=== PATIENT | female | born 1985 | race Caucasian/White ===

== ENCOUNTER 2018-05-29 12:33 | Emergency (ER) | payer OTHER, MEDICAID, SELFPAY ==
[2018-05-29 12:45] VITALS: BP 141/95; PULSE 85; RESP 16; TEMP 36.8; O2SAT 99; BMI 30.7
--- NOTE | 2018-05-29 12:50 | DI.RAD.S_ITS ---
PROCEDURE: XR ANKLE LT MIN 3V INDICATIONS: inversion injury to ankle - swelling over lateral maleolus TECHNIQUE: 3 views of the ankle were acquired. COMPARISON: [facility], , ANKLE 3 VIEWS LEFT, 10/23/2012, 2:37. [facility], , ANKLE 3 VIEWS LEFT, 02/28/2009, 22:27. FINDINGS: Bones: No fractures or dislocations. Ankle mortise is normally aligned. No suspicious bony lesions. Soft tissues: No tibiotalar joint effusion. Achilles tendon appears normal. IMPRESSION: No trauma found. Dictated by: James Caldera M.D. on 05/29/2018 at 13:11 Approved by: James Caldera M.D. on 05/29/2018 at 13:11
[2018-05-29 14:45] VITALS: PULSE 70
--- NOTE | 2018-05-29 15:04 | ED.LOWEXIN ---
HPI - Extremity Injury (Lower) <RICHA Bellamy - Last Filed: 05/29/18 22:34> General Chief Complaint: Extremity Injury, Lower Stated Complaint: LEFT ANKLE PAIN Time Seen by Provider: 05/29/18 15:17 History of Present Illness HPI Narrative: 33-year-old female here for complaint of left ankle pain since earlier today. She states she was walking when she rolled her left ankle with pain into the lateral aspect of the ankle with swelling. She reports increased pain with ambulation and weight-bearing make it difficult for her to ambulate. She denies any other injuries or concerns. MD complaint: ankle injury Related Data Previous Rx's Medication Instructions Recorded nystatin 1 pb TOPICAL BID #30 gm 02/26/17 omeprazole 40 mg PO QDAY #90 cap 03/28/17 jktleunxmx-hrrlceyhhvfyp-rfis 0 tab PO Q6HP #30 tab 06/11/17 albuterol sulfate [Ventolin HFA] 2 puff INH Q4HP PRN #1 inh 06/25/17 fluticasone 1 spray INTRANASAL BID #16 gm 11/07/17 beclomethasone dipropionate [Qvar] 1 puff INH BID #1 inh 01/07/18 escitalopram oxalate 5 mg PO QDAY #30 tab 03/01/18 [PRENAVITE] 1 tab PO QDAY #90 tab 04/01/18 lamotrigine 100 mg tablet 100 mg PO QDAY #30 tab 05/23/18 levothyroxine [Synthroid] 125 mcg PO QAM #90 tab 05/27/18 calcitriol 0.25 mcg capsule 0.75 mcg PO ONCE #90 cap 05/31/18 calcitriol 0.5 mcg capsule 0.5 mcg PO BID #60 cap 05/31/18 cetirizine 10 mg PO QDAYP PRN #30 tab 06/03/18 Allergies Allergy/AdvReac Type Severity Reaction Status Date / Time Penicillins [PENICILLINS] Allergy Mild HIVES Verified 05/29/18 12:49 adhesive [ADHESIVE] AdvReac Mild sensitive Verified 05/29/18 12:49 to tape, rash Review of Systems <RICHA Bellamy - Last Filed: 05/29/18 22:34> Constitutional Denies chills, Denies fever(s), Denies lethargy and Denies weakness Eyes Denies change in vision, Denies eye discharge, Denies irritation and Denies loss of vision ENT Ears, Nose, Mouth, and Throat: Denies change in voice, Denies neck pain and Denies sore throat Cardiovascular Denies chest pain, Denies irregular heart rhythm, Denies lightheadedness, Denies palpitations, Denies dyspnea, Denies dyspnea on exertion and Denies orthopnea Respiratory Denies cough, Denies dyspnea, Denies dyspnea on exertion and Denies wheezing Gastrointestinal Gastrointestinal: Denies abdominal pain, Denies change in bowel habits, Denies diarrhea, Denies nausea and Denies vomiting Genitourinary Denies hematuria, Denies flank pain, Denies urinary incontinence and Denies urinary urgency Musculoskeletal Denies neck pain Comments: Swelling and pain into left ankle Integumentary/Breasts Denies pruritus, Denies erythema, Denies rash and Denies wounds Neurologic Denies confusion, Denies loss of vision and Denies weakness Psychiatric Denies anxiety, Denies confusion, Denies depression, Denies homicidal ideation and Denies suicidal ideation Endocrine Denies palpitations Allergic/Immunologic Denies wheezing Exam <RICHA Bellamy - Last Filed: 05/29/18 22:34> Initial Vital Signs Initial Vital Signs: Vital Signs Temperature 98.3 F 05/29/18 12:45 Pulse Rate 85 05/29/18 12:45 Respiratory Rate 16 05/29/18 12:45 Blood Pressure 141/95 H 05/29/18 12:45 Pulse Oximetry 99 05/29/18 12:45 Const General: cooperative and well developed Nutritional Appearance: well nourished Orientation: alert, awake, oriented x3 and not confused [facility] Mouth: oral mucosae normal and moist mucous membranes Eyes Conjunctivae: conjunctivae normal Sclera: sclerae normal Pupils: PERRL EOM: EOM intact bilaterally Resp Effort & Inspection: normal respiratory effort, able to speak in complete sentences, no respiratory distress and no use of accessory muscles Auscultation: clear to auscultation bilaterally, no rales, no rhonchi and no wheezes Cardio Rate: regular rate Rhythm: regular rhythm Heart Sounds: no click, no gallops, no murmurs and no rubs Pulses: normal peripheral pulses Skin General: no rashes or lesions noted, No jaundice and No petechiae Neuro General: alert, oriented x3, gait normal and no focal motor deficits Speech: speech normal Extrem Other: Swelling to the lateral malleolus slight ecchymosis no open lesions. Distal sensation is intact. Distal range of motion is intact. Distal pulses intact <Steff Malone DO - Last Filed: 06/04/18 07:27> Initial Vital Signs Initial Vital Signs: Vital Signs Temperature 98.3 F 05/29/18 12:45 Pulse Rate 85 05/29/18 12:45 Respiratory Rate 16 05/29/18 12:45 Blood Pressure 141/95 H 05/29/18 12:45 Pulse Oximetry 99 05/29/18 12:45 Course <RICHA Bellamy - Last Filed: 05/29/18 22:34> Orders Ordered: ED Orders 05/29/18 12:50 XR ankle LT min 3V Stat Vital Signs - 8 hr 05/29/18 14:45 05/29/18 15:39 Temperature 97.6 F Pulse Rate 64 Pulse Rate [Left Posterior Tibial] 70 Respiratory Rate 16 Blood Pressure [Right Arm] 126/78 H Pulse Oximetry 100 <DO Hawk Castrejon Last Filed: 06/04/18 07:27> Orders Ordered: ED Orders 05/29/18 12:50 XR ankle LT min 3V Stat Vital Signs - 8 hr 05/29/18 14:45 05/29/18 15:39 Temperature 97.6 F Pulse Rate 64 Pulse Rate [Left Posterior Tibial] 70 Respiratory Rate 16 Blood Pressure [Right Arm] 126/78 H Pulse Oximetry 100 MDM - Extremity Injury (Lower) <RICHA Bellamy - Last Filed: 05/29/18 22:34> Imaging Data Left ankle: Radiologist's impression: PROCEDURE: XR ANKLE LT MIN 3V INDICATIONS: inversion injury to ankle - swelling over lateral maleolus TECHNIQUE: 3 views of the ankle were acquired. COMPARISON: [facility], , ANKLE 3 VIEWS LEFT, 10/23/2012, 2:37. [facility], , ANKLE 3 VIEWS LEFT, 02/28/2009, 22:27. FINDINGS: Bones: No fractures or dislocations. Ankle mortise is normally aligned. No suspicious bony lesions. Soft tissues: No tibiotalar joint effusion. Achilles tendon appears normal. IMPRESSION: No trauma found. Dictated by: James Caldera M.D. on 05/29/2018 at 13:11 Approved by: James Caldera M.D. on 05/29/2018 at 13:11 [facility] Narrative Medical decision making narrative: X-ray of the left ankle was obtained was negative for any acute fractures. She is placed in a gel splint for comfort and support. She has crutches at home and will use them for ambulation for nonweightbearing. Follow up with primary care provider next week for re-evaluation. [id number] Tylenol and/or Motrin as needed for discomfort. Ice and elevation help with swelling. For any worsening symptoms return emergency room. Discharge Plan Departure Patient Disposition: Home, Self-Care Clinical Impression: Left ankle sprain Discharge Date/Time: 05/29/18 16:03 Interventions: ED Discharge Assessment Last Done: 05/29/18 16:03 Instructions: DI for Ankle Sprain Activity Restrictions/Additional Instructions: X-ray of the left ankle was obtained was negative for any acute fractures. Signs and symptoms presents as a left ankle sprain. You have been placed in a splint for comfort and support use as directed. Use crutches for nonweightbearing until able to bear weight without discomfort. Follow up with her primary care provider next week for re-evaluation. Use veyv-use-eamxwbn Tylenol and/or Motrin as needed for any discomfort. Ice and elevation to help with swelling. For any worsening symptoms return to the emergency room. Prescriptions: No Action nystatin 30 GM cream 1 pb Topical BID Qty: 30 RF: 1 omeprazole 40 MG capsule,delayed release(DR/EC) 40 mg PO QDAY Qty: 90 RF: 3 mefbzejtlw-ybudalxnwsjan-nalt 1 EACH tablet PO Q6HP Qty: 30 RF: 3 albuterol sulfate [Ventolin HFA] 90 MCG/PUFF HFA aerosol inhaler 2 puff INH Q4HP PRNQty: 1 RF: 5 fluticasone 16 GM spray,suspension 1 spray Intranasal BID Qty: 16 RF: 5 beclomethasone dipropionate [Qvar] 80 MCG/PUFF aerosol 1 puff INH BID Qty: 1 RF: 0 escitalopram oxalate 5 MG tablet 5 mg PO QDAY Qty: 30 RF: 1 [PRENAVITE] 1 tab PO QDAY Qty: 90 RF: 0 lamotrigine [Lamictal] 100 mg tablet 100 mg PO QDAY Qty: 30 RF: 0 levothyroxine [Synthroid] 125 mcg tablet 125 mcg PO QAM Qty: 90 RF: 1 calcitriol 0.5 mcg capsule 0.5 mcg PO BID Qty: 60 RF: 5 calcitriol 0.25 mcg capsule 0.75 mcg PO ONCE Qty: 90 RF: 5 cetirizine 10 mg tablet 10 mg PO QDAYP PRNQty: 30 RF: 3 Referrals: Anum Melo DO [Primary Care Provider] - <Steff Malone DO - Last Filed: 06/04/18 07:27> Cosign ED Attending Cosignature Attestation: I was immediately available in the department for consultation. Documentation has been reviewed. I agree with assessment and plan.
--- NOTE | 2018-05-29 15:12 | ED_ITS ---
HPI - Extremity Injury (Lower) <RICHA Bellamy - Last Filed: 05/29/18 22:34> General Chief Complaint: Extremity Injury, Lower Stated Complaint: LEFT ANKLE PAIN Time Seen by Provider: 05/29/18 15:17 History of Present Illness HPI Narrative: 33-year-old female here for complaint of left ankle pain since earlier today. She states she was walking when she rolled her left ankle with pain into the lateral aspect of the ankle with swelling. She reports increased pain with ambulation and weight-bearing make it difficult for her to ambulate. She denies any other injuries or concerns. MD complaint: ankle injury Related Data Previous Rx's Medication Instructions Recorded nystatin 1 pb TOPICAL BID #30 gm 02/26/17 omeprazole 40 mg PO QDAY #90 cap 03/28/17 exysguekzq-dmqddmlbsjorb-dass 0 tab PO Q6HP #30 tab 06/11/17 albuterol sulfate [Ventolin HFA] 2 puff INH Q4HP PRN #1 inh 06/25/17 fluticasone 1 spray INTRANASAL BID #16 gm 11/07/17 beclomethasone dipropionate [Qvar] 1 puff INH BID #1 inh 01/07/18 escitalopram oxalate 5 mg PO QDAY #30 tab 03/01/18 [PRENAVITE] 1 tab PO QDAY #90 tab 04/01/18 lamotrigine 100 mg tablet 100 mg PO QDAY #30 tab 05/23/18 levothyroxine [Synthroid] 125 mcg PO QAM #90 tab 05/27/18 calcitriol 0.25 mcg capsule 0.75 mcg PO ONCE #90 cap 05/31/18 calcitriol 0.5 mcg capsule 0.5 mcg PO BID #60 cap 05/31/18 cetirizine 10 mg PO QDAYP PRN #30 tab 06/03/18 Allergies Allergy/AdvReac Type Severity Reaction Status Date / Time Penicillins [PENICILLINS] Allergy Mild HIVES Verified 05/29/18 12:49 adhesive [ADHESIVE] AdvReac Mild sensitive Verified 05/29/18 12:49 to tape, rash Review of Systems <RICHA Bellamy - Last Filed: 05/29/18 22:34> Constitutional Denies chills, Denies fever(s), Denies lethargy and Denies weakness Eyes Denies change in vision, Denies eye discharge, Denies irritation and Denies loss of vision ENT Ears, Nose, Mouth, and Throat: Denies change in voice, Denies neck pain and Denies sore throat Cardiovascular Denies chest pain, Denies irregular heart rhythm, Denies lightheadedness, Denies palpitations, Denies dyspnea, Denies dyspnea on exertion and Denies orthopnea Respiratory Denies cough, Denies dyspnea, Denies dyspnea on exertion and Denies wheezing Gastrointestinal Gastrointestinal: Denies abdominal pain, Denies change in bowel habits, Denies diarrhea, Denies nausea and Denies vomiting Genitourinary Denies hematuria, Denies flank pain, Denies urinary incontinence and Denies urinary urgency Musculoskeletal Denies neck pain Comments: Swelling and pain into left ankle Integumentary/Breasts Denies pruritus, Denies erythema, Denies rash and Denies wounds Neurologic Denies confusion, Denies loss of vision and Denies weakness Psychiatric Denies anxiety, Denies confusion, Denies depression, Denies homicidal ideation and Denies suicidal ideation Endocrine Denies palpitations Allergic/Immunologic Denies wheezing Exam <RICHA Bellamy - Last Filed: 05/29/18 22:34> Initial Vital Signs Initial Vital Signs: Vital Signs Temperature 98.3 F 05/29/18 12:45 Pulse Rate 85 05/29/18 12:45 Respiratory Rate 16 05/29/18 12:45 Blood Pressure 141/95 H 05/29/18 12:45 Pulse Oximetry 99 05/29/18 12:45 Const General: cooperative and well developed Nutritional Appearance: well nourished Orientation: alert, awake, oriented x3 and not confused [facility] Mouth: oral mucosae normal and moist mucous membranes Eyes Conjunctivae: conjunctivae normal Sclera: sclerae normal Pupils: PERRL EOM: EOM intact bilaterally Resp Effort & Inspection: normal respiratory effort, able to speak in complete sentences, no respiratory distress and no use of accessory muscles Auscultation: clear to auscultation bilaterally, no rales, no rhonchi and no wheezes Cardio Rate: regular rate Rhythm: regular rhythm Heart Sounds: no click, no gallops, no murmurs and no rubs Pulses: normal peripheral pulses Skin General: no rashes or lesions noted, No jaundice and No petechiae Neuro General: alert, oriented x3, gait normal and no focal motor deficits Speech: speech normal Extrem Other: Swelling to the lateral malleolus slight ecchymosis no open lesions. Distal sensation is intact. Distal range of motion is intact. Distal pulses intact <Steff Malone DO - Last Filed: 06/04/18 07:27> Initial Vital Signs Initial Vital Signs: Vital Signs Temperature 98.3 F 05/29/18 12:45 Pulse Rate 85 05/29/18 12:45 Respiratory Rate 16 05/29/18 12:45 Blood Pressure 141/95 H 05/29/18 12:45 Pulse Oximetry 99 05/29/18 12:45 Course <RICHA Bellamy - Last Filed: 05/29/18 22:34> Orders Ordered: ED Orders 05/29/18 12:50 XR ankle LT min 3V Stat Vital Signs - 8 hr 05/29/18 14:45 05/29/18 15:39 Temperature 97.6 F Pulse Rate 64 Pulse Rate [Left Posterior Tibial] 70 Respiratory Rate 16 Blood Pressure [Right Arm] 126/78 H Pulse Oximetry 100 <DO Hawk Castrejon Last Filed: 06/04/18 07:27> Orders Ordered: ED Orders 05/29/18 12:50 XR ankle LT min 3V Stat Vital Signs - 8 hr 05/29/18 14:45 05/29/18 15:39 Temperature 97.6 F Pulse Rate 64 Pulse Rate [Left Posterior Tibial] 70 Respiratory Rate 16 Blood Pressure [Right Arm] 126/78 H Pulse Oximetry 100 MDM - Extremity Injury (Lower) <RICHA Bellamy - Last Filed: 05/29/18 22:34> Imaging Data Left ankle: Radiologist's impression: PROCEDURE: XR ANKLE LT MIN 3V INDICATIONS: inversion injury to ankle - swelling over lateral maleolus TECHNIQUE: 3 views of the ankle were acquired. COMPARISON: , , ANKLE 3 VIEWS LEFT, 10/23/2012, 2:37. , , ANKLE 3 VIEWS LEFT, 02/28/2009, 22:27. FINDINGS: Bones: No fractures or dislocations. Ankle mortise is normally aligned. No suspicious bony lesions. Soft tissues: No tibiotalar joint effusion. Achilles tendon appears normal. IMPRESSION: No trauma found. Dictated by: James Caldera M.D. on 05/29/2018 at 13:11 Approved by: James Caldera M.D. on 05/29/2018 at 13:11 [facility] Narrative Medical decision making narrative: X-ray of the left ankle was obtained was negative for any acute fractures. She is placed in a gel splint for comfort and support. She has crutches at home and will use them for ambulation for nonweightbearing. Follow up with primary care provider next week for re- evaluation. [id number]-fxb-aurwrrq Tylenol and/or Motrin as needed for discomfort. Ice and elevation help with swelling. For any worsening symptoms return emergency room. Discharge Plan Departure Patient Disposition: Home, Self-Care Clinical Impression: Left ankle sprain Discharge Date/Time: 05/29/18 16:03 Interventions: ED Discharge Assessment Last Done: 05/29/18 16:03 Instructions: DI for Ankle Sprain Activity Restrictions/Additional Instructions: X-ray of the left ankle was obtained was negative for any acute fractures. Signs and symptoms presents as a left ankle sprain. You have been placed in a splint for comfort and support use as directed. Use crutches for nonweightbearing until able to bear weight without discomfort. Follow up with her primary care provider next week for re-evaluation. Use fuup-eaf-opbiijl Tylenol and/or Motrin as needed for any discomfort. Ice and elevation to help with swelling. For any worsening symptoms return to the emergency room. Prescriptions: No Action nystatin 30 GM cream 1 pb Topical BID Qty: 30 RF: 1 omeprazole 40 MG capsule,delayed release(DR/EC) 40 mg PO QDAY Qty: 90 RF: 3 krfeehjqis-gzinmvvygxdkh-ooik 1 EACH tablet PO Q6HP Qty: 30 RF: 3 albuterol sulfate [Ventolin HFA] 90 MCG/PUFF HFA aerosol inhaler 2 puff INH Q4HP PRNQty: 1 RF: 5 fluticasone 16 GM spray,suspension 1 spray Intranasal BID Qty: 16 RF: 5 beclomethasone dipropionate [Qvar] 80 MCG/PUFF aerosol 1 puff INH BID Qty: 1 RF: 0 escitalopram oxalate 5 MG tablet 5 mg PO QDAY Qty: 30 RF: 1 [PRENAVITE] 1 tab PO QDAY Qty: 90 RF: 0 lamotrigine [Lamictal] 100 mg tablet 100 mg PO QDAY Qty: 30 RF: 0 levothyroxine [Synthroid] 125 mcg tablet 125 mcg PO QAM Qty: 90 RF: 1 calcitriol 0.5 mcg capsule 0.5 mcg PO BID Qty: 60 RF: 5 calcitriol 0.25 mcg capsule 0.75 mcg PO ONCE Qty: 90 RF: 5 cetirizine 10 mg tablet 10 mg PO QDAYP PRNQty: 30 RF: 3 Referrals: Anum Melo DO [Primary Care Provider] - <Steff Malone DO - Last Filed: 06/04/18 07:27> Cosign ED Attending Cosignature Attestation: I was immediately available in the department for consultation. Documentation has been reviewed. I agree with assessment and plan.
[2018-05-29 15:39] VITALS: BP 126/78; PULSE 64; RESP 16; TEMP 36.4; O2SAT 100
== END 2018-05-29 16:03 | disposition home or self-care (01) ==
PROVIDERS: Emergency Provider Nurse Practitioner Family; Family Provider Family Medicine; PCP Family Medicine
DX: S93.402A Sprain of unspecified ligament of left ankle, initial encounter (principal); W18.40XA Slipping, tripping and stumbling without falling, unspecified, initial encounter
CPT/HCPCS: 29540; 73610; 99282; 99283

== ENCOUNTER → 2018-06-25 07:45 | Outpatient (CLI) | payer OTHER, MEDICAID, SELFPAY ==
[2018-06-25 08:58] LABS: TSH w/ Reflex to FT4 2.42 uIU/mL (0.47-4.68)
[2018-06-27 12:15] LABS: Ionized Calcium 4.9 mg/dL (4.8-5.6)
== END ==
PROVIDERS: PCP Family Medicine; Visit Provider Family Medicine
DX: E03.9 Hypothyroidism, unspecified (principal); E05.00 Thyrotoxicosis with diffuse goiter without thyrotoxic crisis or storm; E83.51 Hypocalcemia
CPT/HCPCS: 36415; 82330; 84443

== ENCOUNTER 2018-07-18 13:45 | Outpatient (RCR) | payer OTHER, MEDICAID, SELFPAY ==
--- NOTE | 2018-06-17 18:09 | PT.OIE ---
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) Graves' disease (Resolved) 7 (Resolved) Hyperthyroidism (Resolved) Past Surgical History (Last Reviewed 06/14/18 @ 08:48 by Nereyda Marie LPN) History of thyroidectomy (Resolved 10/2013) Status post delivery (Resolved 01/31/17) Provider Visit Care Team Role Provider Type Anum Melo DO Family Provider Physician Primary Care Provider Specialty: Family Practice Address: [address] [place] [address], [id number] Email: [email or web address] Ashok Barnes MD Attending Provider Physician Specialty: Internal Medicine Address: [address] [place] [address], [id number] Email: Physical Therapy Initial Evaluation PT-OP-A Visit Information Start: 06/18/18 17:40 Freq: Status: Active Protocol: Document 06/17/18 13:45 DCW (Rec: 06/18/18 18:09 [facility] [id number]) Out-Patient Physical Therapy Visit Information Visit Information Visit Type Initial Evaluation Visit Start Time 13:45 Visit Stop Time 14:30 Total Visit Minutes 45 Visit Number 1 Number of DRAWING MACHINE OPERATOR Visits 0 Evaluation Information Evaluation Date 06/17/18 PT-OP-B Current Condition Start: 06/18/18 17:40 Freq: Status: Active Protocol: Document 06/17/18 13:45 DCW (Rec: 06/18/18 18:09 DC [id number]) Current Condition History of Current Condition Onset Date s/p three weeks ankle sprain Current Complaints Left ankle pain, ankle instability, repeated chronic ankle sprain History of Current Condition Pt is a 33 year old female presenting three weeks s/p most recent left ankle sprain. Pt reports she has sprained her left ankle a few dozen times over the last 21 years, including 4 times within the past few months. Pt reports she was just walking when it gave out. Pt notes she is currently able to walk, but is scared to run after her kids. Pt reports there was bruising along the entire dorsal surface of her foot, as well as the entire was back around her heel. Pt recently went to the zoo with her kids, and while she felt okay while walking around there, she was very sore the following day and could not perform her normal household tasks. Prior Treatments and Tests x-ray - negative Future Testing and Treatments Planned Possible MRI Treatment Goals Patient/Caregiver Goals Pt would like to return to running around with her kids without worrying aboud spraining her ankle Prior Functional Status Baseline Function- ADL's Independent Baseline Function- Mobility Independent Current Functional Impairments (Reported) Functional Limitations- Recreation/ Unable to run or jump with Hobbies kids PT-OP-C Subjective Start: 06/18/18 17:40 Freq: Status: Active Protocol: Document 06/17/18 13:45 DCW (Rec: 06/18/18 18:09 DCW [id number]) Patient Questionnaires Lower Extremity Functional Scale LEFS Score 67/80 = 83.75% LEFS Impairment 1 to 19% Impaired (Score 63-79 ) OP-PT Pain Assessment Pain Assessment Grid Paper Pain Assessment Grid Completed Yes Location Left Lateral Ankle Intensity 4 Scale Used Numeric (1 - 10) Pain Aggravating Factors Exercise PT-OP-F Manual Assessment Start: 06/18/18 17:40 Freq: Status: Active Protocol: Document 06/17/18 13:45 DCW (Rec: 06/18/18 18:09 DCW [id number]) Manual Assessments Soft Tissue Assessment Soft Tissue Mobility Assessment Edema surrounding lateral malleolus, tenderness to palpation along peroneal tendon, pain at posterior talofibular ligament. No pain at anterior talofibular ligament Joint Mobility Assessment Joint Mobility Assessment Posterior->Anterior hypermobility at lateral talofibular joint PT-OP-K Range of Motion Start: 06/18/18 17:40 Freq: Status: Active Protocol: Document 06/17/18 13:45 DCW (Rec: 06/18/18 18:09 DCW [id number]) Ankle and Foot Goniometric Range of Motion Ankle and Foot Measured in Degrees Left Active Ankle/Foot ROM WFL Yes Testing Position Sitting PT-OP-L Special Tests Start: 06/18/18 17:40 Freq: Status: Active Protocol: Document 06/17/18 13:45 DCW (Rec: 06/18/18 18:09 DCW [id number]) Special Tests Foot/Ankle Special Tests Talor Tilt Test Results 2 Comments Possible ligamental damage Anterior Draw Test Results Positive PT-OP-M Strength Start: 06/18/18 17:40 Freq: Status: Active Protocol: Document 06/17/18 13:45 DCW (Rec: 06/18/18 18:09 DCW [id number]) Ankle/Foot Strength Ankle and Foot Manual Muscle Testing Left Dorsiflexion (L4) 5 Normal Plantarflexion (S1) 4 Good Inversion 5 Normal Eversion (S1) 4- Good- PT-OP-Q Treatments Start: 06/18/18 17:40 Freq: Status: Active Protocol: Document 06/17/18 13:45 DCW (Rec: 06/18/18 18:09 DCW [id number]) Therapeutic Exercises Sitting Exercises 3 Sitting Exercise Name Ankle ABC's Side left 2 Sitting Exercise Name Ankle Plantarflexion Side left Resistance Lv 1 Equipment Used T-band 1 Sitting Exercise Name Ankle Eversion Side left Resistance Lv 1 Equipment Used T-band PT-OP-T Assessment and Plan Start: 06/18/18 17:40 Freq: Status: Active Protocol: Document 06/17/18 13:45 DCW (Rec: 06/18/18 18:09 DCW [id number]) Physical Therapy Assessment Rehab Potential Rehabilitation Potential Good Evaluation Complexity Number of Personal Factors/Comorbidities 1-2 Number of Body Systems Impaired 3 Clinical Presentation at Evaluation Unstable Impairments Impairments Activity Tolerance Edema Functional Activities Gait Pain Soft Tissue Mobility Strength Goals Three Impairment Strength Short Term Goal (STG) Ankle strength to 5/5 Two Impairment Activity Limitation Short Term Goal (STG) Pt to run with her children outside with no ankle pain STG Duration 07/08/18 One Impairment Joint Instability Short Term Goal (STG) Anterior Drawer test to negative STG Duration 07/08/18 Assessment Summary Assessment Pt presents with signs and symptoms of a possible ATF ligament tear.With pt's repeated sprains, along with her positive anterior drawer and talar tilt tests, ligament tear is likely. Additionally, pt has no current pain with palpation at the ATF, which likely indicates that if she does have a tear, it occurred a number of years ago, which has resulted in her repeated ankle sprains. Pt may benefit from strengthening to improve stability at the joint. If pt does not improve with conservative treatment, however, she may benefit from an MRI to determine extent of damage, and potentially a referral to an orthopedic surgeon. Physical Therapy Plan Frequency and Duration Frequency of Treatment 2x/Week Duration of Treatment 8 weeks Plan of Care Start Date 06/17/18 Plan of Care End Date 08/12/18 Therapeutic Interventions Therapeutic Interventions Aquatic Therapy Balance Training Gait Training Home Exercise Program Manual Therapy Self-Care/Home Management Soft Tissue Mobilization Taping Therapeutic Exercises Modalities Cold Pack/Ice Massage Electric Stimulation Hot Packs Ultrasound Next Visit Focus/Plan Next Note Type Treatment Note Next Visit Plan Ice massage, ankle strengthening, joint stability , trial taping
--- NOTE | 2018-06-17 18:10 | PT.OPPOC ---
Current Diagnoses Pain in left ankle and joints of left foot (06/17/18) Sprain of unspecified ligament of left ankle, subsequent encounter (06/17/18) Sprain of other ligament of left ankle, subsequent encounter (06/17/18) Provider Visit Care Team Role Provider Type Anum Melo DO Family Provider Physician Primary Care Provider Specialty: Family Practice Address: [address] [place] [address], [address] Email: [email or web address] Ashok Barnes MD Attending Provider Physician Specialty: Internal Medicine Address: [address] [place] [address], [id number] Email: Plan Of Care PT-OP-T Assessment and Plan Start: 06/18/18 17:40 Freq: Status: Active Protocol: Document 06/17/18 13:45 DCW (Rec: 06/18/18 18:09 DCW [id number]) Physical Therapy Assessment Rehab Potential Rehabilitation Potential Good Evaluation Complexity Number of Personal Factors/Comorbidities 1-2 Number of Body Systems Impaired 3 Clinical Presentation at Evaluation Unstable Impairments Impairments Activity Tolerance Edema Functional Activities Gait Pain Soft Tissue Mobility Strength Goals Three Impairment Strength Short Term Goal (STG) Ankle strength to 5/5 Two Impairment Activity Limitation Short Term Goal (STG) Pt to run with her children outside with no ankle pain STG Duration 07/08/18 One Impairment Joint Instability Short Term Goal (STG) Anterior Drawer test to negative STG Duration 07/08/18 Assessment Summary Assessment Pt presents with signs and symptoms of a possible ATF ligament tear.With pt's repeated sprains, along with her positive anterior drawer and talar tilt tests, ligament tear is likely. Additionally, pt has no current pain with palpation at the ATF, which likely indicates that if she does have a tear, it occurred a number of years ago, which has resulted in her repeated ankle sprains. Pt may benefit from strengthening to improve stability at the joint. If pt does not improve with conservative treatment, however, she may benefit from an MRI to determine extent of damage, and potentially a referral to an orthopedic surgeon. Physical Therapy Plan Frequency and Duration Frequency of Treatment 2x/Week Duration of Treatment 8 weeks Plan of Care Start Date 06/17/18 Plan of Care End Date 08/12/18 Therapeutic Interventions Therapeutic Interventions Aquatic Therapy Balance Training Gait Training Home Exercise Program Manual Therapy Self-Care/Home Management Soft Tissue Mobilization Taping Therapeutic Exercises Modalities Cold Pack/Ice Massage Electric Stimulation Hot Packs Ultrasound Next Visit Focus/Plan Next Note Type Treatment Note Next Visit Plan Ice massage, ankle strengthening, joint stability , trial taping Plan of Care Dates Plan of Care Start Date 06/17/18 Plan of Care End Date 08/12/18 Please Sign and Return: I have reviewed this Plan of Care and certify that the skilled therapy services above are required to meet the patient?s needs. Physician Signature Date Printed Name and Credentials Clinical Instructor Signature Printed Name and Credentials
--- NOTE | 2018-06-26 16:41 | PT.OTN ---
Current Diagnoses Sprain of unspecified ligament of left ankle, initial encounter (06/26/18) Sprain of unspecified ligament of left ankle, subsequent encounter (06/26/18) Physical Therapy Treatment Note PT-OP-A Visit Information Start: 06/18/18 17:40 Freq: Status: Active Protocol: Document 06/26/18 16:00 DCW (Rec: 06/26/18 16:41 DCW [id number]) Out-Patient Physical Therapy Visit Information Visit Information Visit Type Treatment Note Visit Start Time 16:00 Visit Stop Time 16:45 Total Visit Minutes 45 Visit Number 2 Number of YARDER OPERATOR Visits 0 Evaluation Information Evaluation Date 06/17/18 PT-OP-B Current Condition Start: 06/18/18 17:40 Freq: Status: Active Protocol: Document 06/17/18 13:45 DCW (Rec: 06/18/18 18:09 DCW [id number]) Current Condition History of Current Condition Onset Date s/p three weeks ankle sprain Current Complaints Left ankle pain, ankle instability, repeated chronic ankle sprain History of Current Condition Pt is a 33 year old female presenting three weeks s/p most recent left ankle sprain. Pt reports she has sprained her left ankle a few dozen times over the last 21 years, including 4 times within the past few months. Pt reports she was just walking when it gave out. Pt notes she is currently able to walk, but is scared to run after her kids. Pt reports there was bruising along the entire dorsal surface of her foot, as well as the entire was back around her heel. Pt recently went to the zoo with her kids, and while she felt okay while walking around there, she was very sore the following day and could not perform her normal household tasks. Prior Treatments and Tests x-ray - negative Future Testing and Treatments Planned Possible MRI Treatment Goals Patient/Caregiver Goals Pt would like to return to running around with her kids without worrying aboud spraining her ankle Prior Functional Status Baseline Function- ADL's Independent Baseline Function- Mobility Independent Current Functional Impairments (Reported) Functional Limitations- Recreation/ Unable to run or jump with Hobbies kids PT-OP-C Subjective Start: 06/18/18 17:40 Freq: Status: Active Protocol: Document 06/26/18 16:00 DCW (Rec: 06/26/18 16:41 DCW [id number]) OP-PT Subjective Patient Comments Patient Comments Pt reports she has not rolled her ankle at all since her last visit, but her tendon does hurt a little bit. PT-OP-F Manual Assessment Start: 06/18/18 17:40 Freq: Status: Active Protocol: Document 06/17/18 13:45 DCW (Rec: 06/18/18 18:09 DCW [id number]) Manual Assessments Soft Tissue Assessment Soft Tissue Mobility Assessment Edema surrounding lateral malleolus, tenderness to palpation along peroneal tendon, pain at posterior talofibular ligament. No pain at anterior talofibular ligament Joint Mobility Assessment Joint Mobility Assessment Posterior->Anterior hypermobility at lateral talofibular joint PT-OP-K Range of Motion Start: 06/18/18 17:40 Freq: Status: Active Protocol: Document 06/17/18 13:45 DCW (Rec: 06/18/18 18:09 DCW [id number]) Ankle and Foot Goniometric Range of Motion Ankle and Foot Measured in Degrees Left Active Ankle/Foot ROM WFL Yes Testing Position Sitting PT-OP-L Special Tests Start: 06/18/18 17:40 Freq: Status: Active Protocol: Document 06/17/18 13:45 DCW (Rec: 06/18/18 18:09 DCW [id number]) Special Tests Foot/Ankle Special Tests Talor Tilt Test Results 2 Comments Possible ligamental damage Anterior Draw Test Results Positive PT-OP-M Strength Start: 06/18/18 17:40 Freq: Status: Active Protocol: Document 06/17/18 13:45 DCW (Rec: 06/18/18 18:09 DCW [id number]) Ankle/Foot Strength Ankle and Foot Manual Muscle Testing Left Dorsiflexion (L4) 5 Normal Plantarflexion (S1) 4 Good Inversion 5 Normal Eversion (S1) 4- Good- PT-OP-Q Treatments Start: 06/18/18 17:40 Freq: Status: Active Protocol: Document 06/26/18 16:00 DCW (Rec: 06/26/18 16:41 DCW [id number]) Gym Equipment Shuttle Recovery Unilateral Heel Raises Resistance 50# Bilateral Heel Raises Resistance 75# Shuttle Balance 1 Details Red - Lateral Weight Shift Therapeutic Exercises Standing Exercises 1 Standing Exercise Name BAPS - DF/PF, Inv/Ev, CW/CCW Side left Manual Therapy Treatment Taping 1 Body Location Fan across left lateral ankle Treatment Focus Stability, edema management Type of Tape Kinesio Tape Neuro Re-Education Treatment Balance Activities 1 Details SLS on BOSU Surface Blue BOSU PT-OP-R Modalities Start: 06/18/18 17:40 Freq: Status: Active Protocol: Document 06/26/18 16:00 DCW (Rec: 06/26/18 16:41 DCW [id number]) Ultrasound Therapy Treatment Left Lateral Ankle Treatment Duration (minutes) 8 Patient Position Hooklying Coupling Medium Ultrasound Gel Frequency Setting (mHz) 3 Mode Setting Pulsed Duty Cycle 50 Intensity Setting (w/cm2) 1.2 PT-OP-T Assessment and Plan Start: 06/18/18 17:40 Freq: Status: Active Protocol: Document 06/26/18 16:00 DCW (Rec: 06/26/18 16:41 DCW [id number]) Physical Therapy Assessment Impairments Impairments Activity Tolerance Edema Functional Activities Gait Pain Soft Tissue Mobility Strength Goals Three Impairment Strength Short Term Goal (STG) Ankle strength to 5/5 Two Impairment Activity Limitation Short Term Goal (STG) Pt to run with her children outside with no ankle pain STG Duration 07/08/18 One Impairment Joint Instability Short Term Goal (STG) Anterior Drawer test to negative STG Duration 07/08/18 Assessment Summary Assessment Pt tolerated today's TherEx with mild apprehension, but able to perform all activities pain-free Physical Therapy Plan Frequency and Duration Frequency of Treatment 2x/Week Duration of Treatment 8 weeks Plan of Care Start Date 06/17/18 Plan of Care End Date 08/12/18 Therapeutic Interventions Therapeutic Interventions Aquatic Therapy Balance Training Gait Training Home Exercise Program Manual Therapy Self-Care/Home Management Soft Tissue Mobilization Taping Therapeutic Exercises Modalities Cold Pack/Ice Massage Electric Stimulation Hot Packs Ultrasound Next Visit Focus/Plan Next Note Type Treatment Note Next Visit Plan Ice massage, ankle strengthening, joint stability , trial taping
--- NOTE | 2018-07-02 16:44 | PT.OTN ---
Current Diagnoses Sprain of unspecified ligament of left ankle, initial encounter (07/02/18) Sprain of unspecified ligament of left ankle, subsequent encounter (07/02/18) Physical Therapy Treatment Note PT-OP-A Visit Information Start: 06/18/18 17:40 Freq: Status: Active Protocol: Document 07/02/18 16:00 DCW (Rec: 07/02/18 16:44 DCW [id number]) Out-Patient Physical Therapy Visit Information Visit Information Visit Type Treatment Note Visit Start Time 16:00 Visit Stop Time 16:45 Total Visit Minutes 45 Visit Number 3 Number of COTTON ACREAGE MEASURER Visits 0 Evaluation Information Evaluation Date 06/17/18 PT-OP-B Current Condition Start: 06/18/18 17:40 Freq: Status: Active Protocol: Document 06/17/18 13:45 DCW (Rec: 06/18/18 18:09 DCW [id number]) Current Condition History of Current Condition Onset Date s/p three weeks ankle sprain Current Complaints Left ankle pain, ankle instability, repeated chronic ankle sprain History of Current Condition Pt is a 33 year old female presenting three weeks s/p most recent left ankle sprain. Pt reports she has sprained her left ankle a few dozen times over the last 21 years, including 4 times within the past few months. Pt reports she was just walking when it gave out. Pt notes she is currently able to walk, but is scared to run after her kids. Pt reports there was bruising along the entire dorsal surface of her foot, as well as the entire was back around her heel. Pt recently went to the zoo with her kids, and while she felt okay while walking around there, she was very sore the following day and could not perform her normal household tasks. Prior Treatments and Tests x-ray - negative Future Testing and Treatments Planned Possible MRI Treatment Goals Patient/Caregiver Goals Pt would like to return to running around with her kids without worrying aboud spraining her ankle Prior Functional Status Baseline Function- ADL's Independent Baseline Function- Mobility Independent Current Functional Impairments (Reported) Functional Limitations- Recreation/ Unable to run or jump with Hobbies kids PT-OP-C Subjective Start: 06/18/18 17:40 Freq: Status: Active Protocol: Document 07/02/18 16:00 DCW (Rec: 07/02/18 16:44 DCW [id number]) OP-PT Subjective Patient Comments Patient Comments Pt reports she did not roll her ankle, but did step down wrong and just turned it out a little. PT-OP-F Manual Assessment Start: 06/18/18 17:40 Freq: Status: Active Protocol: Document 06/17/18 13:45 DCW (Rec: 06/18/18 18:09 DCW [id number]) Manual Assessments Soft Tissue Assessment Soft Tissue Mobility Assessment Edema surrounding lateral malleolus, tenderness to palpation along peroneal tendon, pain at posterior talofibular ligament. No pain at anterior talofibular ligament Joint Mobility Assessment Joint Mobility Assessment Posterior->Anterior hypermobility at lateral talofibular joint PT-OP-K Range of Motion Start: 06/18/18 17:40 Freq: Status: Active Protocol: Document 06/17/18 13:45 DCW (Rec: 06/18/18 18:09 DCW [id number]) Ankle and Foot Goniometric Range of Motion Ankle and Foot Measured in Degrees Left Active Ankle/Foot ROM WFL Yes Testing Position Sitting PT-OP-L Special Tests Start: 06/18/18 17:40 Freq: Status: Active Protocol: Document 06/17/18 13:45 DCW (Rec: 06/18/18 18:09 DCW [id number]) Special Tests Foot/Ankle Special Tests Talor Tilt Test Results 2 Comments Possible ligamental damage Anterior Draw Test Results Positive PT-OP-M Strength Start: 06/18/18 17:40 Freq: Status: Active Protocol: Document 06/17/18 13:45 DCW (Rec: 06/18/18 18:09 DCW [id number]) Ankle/Foot Strength Ankle and Foot Manual Muscle Testing Left Dorsiflexion (L4) 5 Normal Plantarflexion (S1) 4 Good Inversion 5 Normal Eversion (S1) 4- Good- PT-OP-Q Treatments Start: 06/18/18 17:40 Freq: Status: Active Protocol: Document 07/02/18 16:00 DCW (Rec: 07/02/18 16:44 DCW [id number]) Gym Equipment Shuttle Recovery Unilateral Heel Raises Resistance 50# Bilateral Heel Raises Resistance 100# Shuttle Balance 1 Details Red - Lateral Weight Shift Manual Therapy Treatment Soft Tissue Mobilization 1 Body Location Peroneal Tendon Mobilization Type Cross-Friction Intensity/Depth Superficial Body Position Sitting Taping 1 Body Location Fan across left lateral ankle Treatment Focus Stability, edema management Type of Tape Kinesio Tape PT-OP-R Modalities Start: 06/18/18 17:40 Freq: Status: Active Protocol: Document 07/02/18 16:00 DCW (Rec: 07/02/18 16:44 DCW [id number]) Hot Pack/Cold Pack Treatment Ice Massage Location Lateral ankle Patient Position Hooklying Treatment Duration (minutes) 5 Patient Tolerance Good Ultrasound Therapy Treatment Left Lateral Ankle Treatment Duration (minutes) 8 Patient Position Hooklying Coupling Medium Ultrasound Gel Frequency Setting (mHz) 3 Mode Setting Pulsed Duty Cycle 50 Intensity Setting (w/cm2) 1.2 PT-OP-T Assessment and Plan Start: 06/18/18 17:40 Freq: Status: Active Protocol: Document 07/02/18 16:00 DCW (Rec: 07/02/18 16:44 DCW [id number]) Physical Therapy Assessment Impairments Impairments Activity Tolerance Edema Functional Activities Gait Pain Soft Tissue Mobility Strength Goals Three Impairment Strength Short Term Goal (STG) Ankle strength to 5/5 Two Impairment Activity Limitation Short Term Goal (STG) Pt to run with her children outside with no ankle pain STG Duration 07/08/18 One Impairment Joint Instability Short Term Goal (STG) Anterior Drawer test to negative STG Duration 07/08/18 Assessment Summary Assessment Pt's ankle presented with appearance of bruising and increased swelling after she turned her foot out into an eversion position, despite her insistence that it wasn't a sprain. Physical Therapy Plan Frequency and Duration Frequency of Treatment 2x/Week Duration of Treatment 8 weeks Plan of Care Start Date 06/17/18 Plan of Care End Date 08/12/18 Therapeutic Interventions Therapeutic Interventions Aquatic Therapy Balance Training Gait Training Home Exercise Program Manual Therapy Self-Care/Home Management Soft Tissue Mobilization Taping Therapeutic Exercises Modalities Cold Pack/Ice Massage Electric Stimulation Hot Packs Ultrasound Next Visit Focus/Plan Next Note Type Treatment Note Next Visit Plan Ice massage, ankle strengthening, joint stability , trial taping
--- NOTE | 2018-07-05 16:10 | PT.OTN ---
Current Diagnoses Sprain of unspecified ligament of left ankle, initial encounter (07/05/18) Sprain of unspecified ligament of left ankle, subsequent encounter (07/05/18) Physical Therapy Treatment Note PT-OP-A Visit Information Start: 06/18/18 17:40 Freq: Status: Active Protocol: Document 07/05/18 15:15 DCW (Rec: 07/05/18 16:09 DCW [id number]) Out-Patient Physical Therapy Visit Information Visit Information Visit Type Treatment Note Visit Start Time 15:15 Visit Stop Time 16:00 Total Visit Minutes 45 Visit Number 4 Number of SCRIPT ARTIST Visits 0 Evaluation Information Evaluation Date 06/17/18 PT-OP-B Current Condition Start: 06/18/18 17:40 Freq: Status: Active Protocol: Document 06/17/18 13:45 DCW (Rec: 06/18/18 18:09 DCW [id number]) Current Condition History of Current Condition Onset Date s/p three weeks ankle sprain Current Complaints Left ankle pain, ankle instability, repeated chronic ankle sprain History of Current Condition Pt is a 33 year old female presenting three weeks s/p most recent left ankle sprain. Pt reports she has sprained her left ankle a few dozen times over the last 21 years, including 4 times within the past few months. Pt reports she was just walking when it gave out. Pt notes she is currently able to walk, but is scared to run after her kids. Pt reports there was bruising along the entire dorsal surface of her foot, as well as the entire was back around her heel. Pt recently went to the zoo with her kids, and while she felt okay while walking around there, she was very sore the following day and could not perform her normal household tasks. Prior Treatments and Tests x-ray - negative Future Testing and Treatments Planned Possible MRI Treatment Goals Patient/Caregiver Goals Pt would like to return to running around with her kids without worrying aboud spraining her ankle Prior Functional Status Baseline Function- ADL's Independent Baseline Function- Mobility Independent Current Functional Impairments (Reported) Functional Limitations- Recreation/ Unable to run or jump with Hobbies kids PT-OP-C Subjective Start: 06/18/18 17:40 Freq: Status: Active Protocol: Document 07/05/18 15:15 DCW (Rec: 07/05/18 16:09 DCW [id number]) OP-PT Subjective Patient Comments Patient Comments Pt reports she woke up with pain shooting up her lateral leg today. PT-OP-F Manual Assessment Start: 06/18/18 17:40 Freq: Status: Active Protocol: Document 06/17/18 13:45 DCW (Rec: 06/18/18 18:09 DCW [id number]) Manual Assessments Soft Tissue Assessment Soft Tissue Mobility Assessment Edema surrounding lateral malleolus, tenderness to palpation along peroneal tendon, pain at posterior talofibular ligament. No pain at anterior talofibular ligament Joint Mobility Assessment Joint Mobility Assessment Posterior->Anterior hypermobility at lateral talofibular joint PT-OP-K Range of Motion Start: 06/18/18 17:40 Freq: Status: Active Protocol: Document 06/17/18 13:45 DCW (Rec: 06/18/18 18:09 DCW [id number]) Ankle and Foot Goniometric Range of Motion Ankle and Foot Measured in Degrees Left Active Ankle/Foot ROM WFL Yes Testing Position Sitting PT-OP-L Special Tests Start: 06/18/18 17:40 Freq: Status: Active Protocol: Document 06/17/18 13:45 DCW (Rec: 06/18/18 18:09 DCW [id number]) Special Tests Foot/Ankle Special Tests Talor Tilt Test Results 2 Comments Possible ligamental damage Anterior Draw Test Results Positive PT-OP-M Strength Start: 06/18/18 17:40 Freq: Status: Active Protocol: Document 06/17/18 13:45 DCW (Rec: 06/18/18 18:09 DCW [id number]) Ankle/Foot Strength Ankle and Foot Manual Muscle Testing Left Dorsiflexion (L4) 5 Normal Plantarflexion (S1) 4 Good Inversion 5 Normal Eversion (S1) 4- Good- PT-OP-Q Treatments Start: 06/18/18 17:40 Freq: Status: Active Protocol: Document 07/05/18 15:15 DCW (Rec: 07/05/18 16:09 DCW [id number]) Gym Equipment Shuttle Recovery Unilateral Heel Raises Resistance 50# Bilateral Heel Raises Resistance 100# Shuttle Balance 1 Details Red - Ankle PF/DF, Lateral Weight Shift Therapeutic Exercises Standing Exercises 1 Standing Exercise Name BAPS - DF/PF, Inv/Ev, CW/CCW Side left Resistance Lv 4 Manual Therapy Treatment Soft Tissue Mobilization 1 Body Location Peroneal Tendon Mobilization Type Cross-Friction Intensity/Depth Superficial Body Position Sitting Taping 1 Body Location Fan across left lateral ankle Treatment Focus Stability, edema management Type of Tape Kinesio Tape PT-OP-R Modalities Start: 06/18/18 17:40 Freq: Status: Active Protocol: Document 07/05/18 15:15 DCW (Rec: 07/05/18 16:09 DCW [id number]) Hot Pack/Cold Pack Treatment Ice Massage Location Lateral ankle Patient Position Hooklying Treatment Duration (minutes) 5 Patient Tolerance Good Ultrasound Therapy Treatment Left Lateral Ankle Treatment Duration (minutes) 8 Patient Position Hooklying Coupling Medium Ultrasound Gel Frequency Setting (mHz) 3 Mode Setting Pulsed Duty Cycle 50 Intensity Setting (w/cm2) 1.2 PT-OP-T Assessment and Plan Start: 06/18/18 17:40 Freq: Status: Active Protocol: Document 07/05/18 15:15 DCW (Rec: 07/05/18 16:09 DCW [id number]) Physical Therapy Assessment Impairments Impairments Activity Tolerance Edema Functional Activities Gait Pain Soft Tissue Mobility Strength Goals Three Impairment Strength Short Term Goal (STG) Ankle strength to 5/5 STG Duration 07/08/18 Two Impairment Activity Limitation Short Term Goal (STG) Pt to run with her children outside with no ankle pain STG Duration 07/08/18 One Impairment Joint Instability Short Term Goal (STG) Anterior Drawer test to negative STG Duration 07/08/18 Assessment Summary Assessment Again appears to have increased edema today Physical Therapy Plan Frequency and Duration Frequency of Treatment 2x/Week Duration of Treatment 8 weeks Plan of Care Start Date 06/17/18 Plan of Care End Date 08/12/18 Therapeutic Interventions Therapeutic Interventions Aquatic Therapy Balance Training Gait Training Home Exercise Program Manual Therapy Self-Care/Home Management Soft Tissue Mobilization Taping Therapeutic Exercises Modalities Cold Pack/Ice Massage Electric Stimulation Hot Packs Ultrasound Next Visit Focus/Plan Next Note Type Treatment Note Next Visit Plan Ice massage, ankle strengthening, joint stability , trial taping
--- NOTE | 2018-07-08 15:17 | PT.OTN ---
Current Diagnoses Sprain of unspecified ligament of left ankle, initial encounter (07/08/18) Sprain of unspecified ligament of left ankle, subsequent encounter (07/08/18) Physical Therapy Treatment Note PT-OP-A Visit Information Start: 06/18/18 17:40 Freq: Status: Active Protocol: Document 07/08/18 14:30 DCW (Rec: 07/08/18 15:17 DCW [id number]) Out-Patient Physical Therapy Visit Information Visit Information Visit Type Treatment Note Visit Start Time 14:30 Visit Stop Time 15:15 Total Visit Minutes 45 Visit Number 5 Number of LAST IRONER Visits 0 Evaluation Information Evaluation Date 06/17/18 PT-OP-B Current Condition Start: 06/18/18 17:40 Freq: Status: Active Protocol: Document 06/17/18 13:45 DCW (Rec: 06/18/18 18:09 DCW [id number]) Current Condition History of Current Condition Onset Date s/p three weeks ankle sprain Current Complaints Left ankle pain, ankle instability, repeated chronic ankle sprain History of Current Condition Pt is a 33 year old female presenting three weeks s/p most recent left ankle sprain. Pt reports she has sprained her left ankle a few dozen times over the last 21 years, including 4 times within the past few months. Pt reports she was just walking when it gave out. Pt notes she is currently able to walk, but is scared to run after her kids. Pt reports there was bruising along the entire dorsal surface of her foot, as well as the entire was back around her heel. Pt recently went to the zoo with her kids, and while she felt okay while walking around there, she was very sore the following day and could not perform her normal household tasks. Prior Treatments and Tests x-ray - negative Future Testing and Treatments Planned Possible MRI Treatment Goals Patient/Caregiver Goals Pt would like to return to running around with her kids without worrying aboud spraining her ankle Prior Functional Status Baseline Function- ADL's Independent Baseline Function- Mobility Independent Current Functional Impairments (Reported) Functional Limitations- Recreation/ Unable to run or jump with Hobbies kids PT-OP-C Subjective Start: 06/18/18 17:40 Freq: Status: Active Protocol: Document 07/08/18 14:30 DCW (Rec: 07/08/18 15:17 DCW [id number]) OP-PT Subjective Patient Comments Patient Comments I tripped in the same hole I initially fell into when I hurt my ankle, but I was able to stop it from rolling before it twisted. PT-OP-F Manual Assessment Start: 06/18/18 17:40 Freq: Status: Active Protocol: Document 06/17/18 13:45 DCW (Rec: 06/18/18 18:09 DCW [id number]) Manual Assessments Soft Tissue Assessment Soft Tissue Mobility Assessment Edema surrounding lateral malleolus, tenderness to palpation along peroneal tendon, pain at posterior talofibular ligament. No pain at anterior talofibular ligament Joint Mobility Assessment Joint Mobility Assessment Posterior->Anterior hypermobility at lateral talofibular joint PT-OP-K Range of Motion Start: 06/18/18 17:40 Freq: Status: Active Protocol: Document 06/17/18 13:45 DCW (Rec: 06/18/18 18:09 DCW [id number]) Ankle and Foot Goniometric Range of Motion Ankle and Foot Measured in Degrees Left Active Ankle/Foot ROM WFL Yes Testing Position Sitting PT-OP-L Special Tests Start: 06/18/18 17:40 Freq: Status: Active Protocol: Document 06/17/18 13:45 DCW (Rec: 06/18/18 18:09 DCW [id number]) Special Tests Foot/Ankle Special Tests Talor Tilt Test Results 2 Comments Possible ligamental damage Anterior Draw Test Results Positive PT-OP-M Strength Start: 06/18/18 17:40 Freq: Status: Active Protocol: Document 06/17/18 13:45 DCW (Rec: 06/18/18 18:09 DCW [id number]) Ankle/Foot Strength Ankle and Foot Manual Muscle Testing Left Dorsiflexion (L4) 5 Normal Plantarflexion (S1) 4 Good Inversion 5 Normal Eversion (S1) 4- Good- PT-OP-Q Treatments Start: 06/18/18 17:40 Freq: Status: Active Protocol: Document 07/08/18 14:30 DCW (Rec: 07/08/18 15:17 DCW [id number]) Gym Equipment Shuttle Recovery Unilateral Heel Raises Resistance 50# Bilateral Heel Raises Resistance 100# Shuttle Balance 1 Details Red - Ankle PF/DF, Lateral Weight Shift Manual Therapy Treatment Soft Tissue Mobilization 1 Body Location Peroneal Tendon Mobilization Type Cross-Friction Intensity/Depth Superficial Body Position Sitting Taping 1 Body Location Fan across left lateral ankle Treatment Focus Stability, edema management Type of Tape Kinesio Tape PT-OP-R Modalities Start: 06/18/18 17:40 Freq: Status: Active Protocol: Document 07/08/18 14:30 DCW (Rec: 07/08/18 15:17 DCW [id number]) Hot Pack/Cold Pack Treatment Ice Massage Location Lateral ankle Patient Position Hooklying Treatment Duration (minutes) 5 Patient Tolerance Good Ultrasound Therapy Treatment Left Lateral Ankle Treatment Duration (minutes) 8 Patient Position Hooklying Coupling Medium Ultrasound Gel Frequency Setting (mHz) 3 Mode Setting Pulsed Duty Cycle 50 Intensity Setting (w/cm2) 1.2 PT-OP-T Assessment and Plan Start: 06/18/18 17:40 Freq: Status: Active Protocol: Document 07/08/18 14:30 DCW (Rec: 07/08/18 15:17 DCW [id number]) Physical Therapy Assessment Impairments Impairments Activity Tolerance Edema Functional Activities Gait Pain Soft Tissue Mobility Strength Goals Three Impairment Strength Short Term Goal (STG) Ankle strength to 5/5 STG Duration 07/08/18 Two Impairment Activity Limitation Short Term Goal (STG) Pt to run with her children outside with no ankle pain STG Duration 07/08/18 One Impairment Joint Instability Short Term Goal (STG) Anterior Drawer test to negative STG Duration 07/08/18 Assessment Summary Assessment The fact that pt was able to use her ankle strength to stabilize her foot and prevent an ankle sprain while stepping in a hole is a good sign. Physical Therapy Plan Frequency and Duration Frequency of Treatment 2x/Week Duration of Treatment 8 weeks Plan of Care Start Date 06/17/18 Plan of Care End Date 08/12/18 Therapeutic Interventions Therapeutic Interventions Aquatic Therapy Balance Training Gait Training Home Exercise Program Manual Therapy Self-Care/Home Management Soft Tissue Mobilization Taping Therapeutic Exercises Modalities Cold Pack/Ice Massage Electric Stimulation Hot Packs Ultrasound Next Visit Focus/Plan Next Note Type Treatment Note Next Visit Plan Ice massage, ankle strengthening, joint stability , trial taping
--- NOTE | 2018-07-11 15:10 | PT.OTN ---
Current Diagnoses Sprain of unspecified ligament of left ankle, initial encounter (07/11/18) Sprain of unspecified ligament of left ankle, subsequent encounter (07/11/18) Physical Therapy Treatment Note PT-OP-A Visit Information Start: 06/18/18 17:40 Freq: Status: Active Protocol: Document 07/11/18 13:45 DCW (Rec: 07/11/18 15:10 DCW [id number]) Out-Patient Physical Therapy Visit Information Visit Information Visit Type Treatment Note Visit Start Time 13:45 Visit Stop Time 14:30 Total Visit Minutes 45 Visit Number 6 Number of DIRECTOR OF TAX SERVICES Visits 0 Evaluation Information Evaluation Date 06/17/18 PT-OP-B Current Condition Start: 06/18/18 17:40 Freq: Status: Active Protocol: Document 06/17/18 13:45 DCW (Rec: 06/18/18 18:09 DCW [id number]) Current Condition History of Current Condition Onset Date s/p three weeks ankle sprain Current Complaints Left ankle pain, ankle instability, repeated chronic ankle sprain History of Current Condition Pt is a 33 year old female presenting three weeks s/p most recent left ankle sprain. Pt reports she has sprained her left ankle a few dozen times over the last 21 years, including 4 times within the past few months. Pt reports she was just walking when it gave out. Pt notes she is currently able to walk, but is scared to run after her kids. Pt reports there was bruising along the entire dorsal surface of her foot, as well as the entire was back around her heel. Pt recently went to the zoo with her kids, and while she felt okay while walking around there, she was very sore the following day and could not perform her normal household tasks. Prior Treatments and Tests x-ray - negative Future Testing and Treatments Planned Possible MRI Treatment Goals Patient/Caregiver Goals Pt would like to return to running around with her kids without worrying aboud spraining her ankle Prior Functional Status Baseline Function- ADL's Independent Baseline Function- Mobility Independent Current Functional Impairments (Reported) Functional Limitations- Recreation/ Unable to run or jump with Hobbies kids PT-OP-C Subjective Start: 06/18/18 17:40 Freq: Status: Active Protocol: Document 07/11/18 13:45 DCW (Rec: 07/11/18 15:10 DCW [id number]) OP-PT Subjective Patient Comments Patient Comments I've noticed that the day after PT is normally the most pain. PT-OP-F Manual Assessment Start: 06/18/18 17:40 Freq: Status: Active Protocol: Document 06/17/18 13:45 DCW (Rec: 06/18/18 18:09 DCW [id number]) Manual Assessments Soft Tissue Assessment Soft Tissue Mobility Assessment Edema surrounding lateral malleolus, tenderness to palpation along peroneal tendon, pain at posterior talofibular ligament. No pain at anterior talofibular ligament Joint Mobility Assessment Joint Mobility Assessment Posterior->Anterior hypermobility at lateral talofibular joint PT-OP-K Range of Motion Start: 06/18/18 17:40 Freq: Status: Active Protocol: Document 06/17/18 13:45 DCW (Rec: 06/18/18 18:09 DCW [id number]) Ankle and Foot Goniometric Range of Motion Ankle and Foot Measured in Degrees Left Active Ankle/Foot ROM WFL Yes Testing Position Sitting PT-OP-L Special Tests Start: 06/18/18 17:40 Freq: Status: Active Protocol: Document 06/17/18 13:45 DCW (Rec: 06/18/18 18:09 DCW [id number]) Special Tests Foot/Ankle Special Tests Talor Tilt Test Results 2 Comments Possible ligamental damage Anterior Draw Test Results Positive PT-OP-M Strength Start: 06/18/18 17:40 Freq: Status: Active Protocol: Document 06/17/18 13:45 DCW (Rec: 06/18/18 18:09 DCW [id number]) Ankle/Foot Strength Ankle and Foot Manual Muscle Testing Left Dorsiflexion (L4) 5 Normal Plantarflexion (S1) 4 Good Inversion 5 Normal Eversion (S1) 4- Good- PT-OP-Q Treatments Start: 06/18/18 17:40 Freq: Status: Active Protocol: Document 07/11/18 13:45 DCW (Rec: 07/11/18 15:10 DCW [id number]) Gym Equipment Shuttle Recovery Unilateral Heel Raises Resistance 50# Bilateral Heel Raises Resistance 100# Shuttle Balance 1 Details Red - Ankle PF/DF, Lateral Weight Shift Manual Therapy Treatment Soft Tissue Mobilization 1 Body Location Peroneal Tendon Mobilization Type Cross-Friction Intensity/Depth Superficial Body Position Sitting Taping 1 Body Location Fan across left lateral ankle Treatment Focus Stability, edema management Type of Tape Kinesio Tape Neuro Re-Education Treatment Balance Activities 1 Details SLS on BOSU Surface Blue BOSU PT-OP-R Modalities Start: 06/18/18 17:40 Freq: Status: Active Protocol: Document 07/11/18 13:45 DCW (Rec: 07/11/18 15:10 DCW [id number]) Hot Pack/Cold Pack Treatment Ice Massage Location Lateral ankle Patient Position Hooklying Treatment Duration (minutes) 5 Patient Tolerance Good Ultrasound Therapy Treatment Left Lateral Ankle Treatment Duration (minutes) 8 Patient Position Hooklying Coupling Medium Ultrasound Gel Frequency Setting (mHz) 3 Mode Setting Pulsed Duty Cycle 50 Intensity Setting (w/cm2) 1.2 PT-OP-T Assessment and Plan Start: 06/18/18 17:40 Freq: Status: Active Protocol: Document 07/11/18 13:45 DCW (Rec: 07/11/18 15:10 DCW [id number]) Physical Therapy Assessment Impairments Impairments Activity Tolerance Edema Functional Activities Gait Pain Soft Tissue Mobility Strength Goals Three Impairment Strength Short Term Goal (STG) Ankle strength to 5/5 STG Duration 07/08/18 Two Impairment Activity Limitation Short Term Goal (STG) Pt to run with her children outside with no ankle pain STG Duration 07/08/18 One Impairment Joint Instability Short Term Goal (STG) Anterior Drawer test to negative STG Duration 07/08/18 Assessment Summary Assessment Pt making some improvements with strength and stability, however may eventually benefit from MRI to determine potential structural damage. Physical Therapy Plan Frequency and Duration Frequency of Treatment 2x/Week Duration of Treatment 8 weeks Plan of Care Start Date 06/17/18 Plan of Care End Date 08/12/18 Therapeutic Interventions Therapeutic Interventions Aquatic Therapy Balance Training Gait Training Home Exercise Program Manual Therapy Self-Care/Home Management Soft Tissue Mobilization Taping Therapeutic Exercises Modalities Cold Pack/Ice Massage Electric Stimulation Hot Packs Ultrasound Next Visit Focus/Plan Next Note Type Treatment Note Next Visit Plan Ice massage, ankle strengthening, joint stability , trial taping
--- NOTE | 2018-07-15 11:25 | PT.OTN ---
Current Diagnoses Sprain of unspecified ligament of left ankle, initial encounter (07/15/18) Sprain of unspecified ligament of left ankle, subsequent encounter (07/15/18) Physical Therapy Treatment Note PT-OP-A Visit Information Start: 06/18/18 17:40 Freq: Status: Active Protocol: Document 07/15/18 11:15 [facility] (Rec: 07/15/18 11:25 [facility] [id number]) Out-Patient Physical Therapy Visit Information Visit Information Visit Type Treatment Note Visit Start Time 10:33 Visit Stop Time 11:23 Total Visit Minutes 50 Visit Number 7 Number of MEAT SELECTOR Visits 0 PT-OP-B Current Condition Start: 06/18/18 17:40 Freq: Status: Active Protocol: Document 06/17/18 13:45 [facility] (Rec: 06/18/18 18:09 [facility] [id number]) Current Condition History of Current Condition Onset Date s/p three weeks ankle sprain Current Complaints Left ankle pain, ankle instability, repeated chronic ankle sprain History of Current Condition Pt is a 33 year old female presenting three weeks s/p most recent left ankle sprain. Pt reports she has sprained her left ankle a few dozen times over the last 21 years, including 4 times within the past few months. Pt reports she was just walking when it gave out. Pt notes she is currently able to walk, but is scared to run after her kids. Pt reports there was bruising along the entire dorsal surface of her foot, as well as the entire was back around her heel. Pt recently went to the zoo with her kids, and while she felt okay while walking around there, she was very sore the following day and could not perform her normal household tasks. Prior Treatments and Tests x-ray - negative Future Testing and Treatments Planned Possible MRI Treatment Goals Patient/Caregiver Goals Pt would like to return to running around with her kids without worrying aboud spraining her ankle Prior Functional Status Baseline Function- ADL's Independent Baseline Function- Mobility Independent Current Functional Impairments (Reported) Functional Limitations- Recreation/ Unable to run or jump with Hobbies kids PT-OP-C Subjective Start: 06/18/18 17:40 Freq: Status: Active Protocol: Document 07/15/18 11:15 [facility] (Rec: 07/15/18 11:25 [facility] [id number]) OP-PT Subjective Patient Comments Patient Comments Pt reports last PT session was the first time she didn't have any pain after. PT-OP-F Manual Assessment Start: 06/18/18 17:40 Freq: Status: Active Protocol: Document 06/17/18 13:45 [facility] (Rec: 06/18/18 18:09 [facility] [id number]) Manual Assessments Soft Tissue Assessment Soft Tissue Mobility Assessment Edema surrounding lateral malleolus, tenderness to palpation along peroneal tendon, pain at posterior talofibular ligament. No pain at anterior talofibular ligament Joint Mobility Assessment Joint Mobility Assessment Posterior->Anterior hypermobility at lateral talofibular joint PT-OP-K Range of Motion Start: 06/18/18 17:40 Freq: Status: Active Protocol: Document 06/17/18 13:45 [facility] (Rec: 06/18/18 18:09 [facility] [id number]) Ankle and Foot Goniometric Range of Motion Ankle and Foot Measured in Degrees Left Active Ankle/Foot ROM WFL Yes Testing Position Sitting PT-OP-L Special Tests Start: 06/18/18 17:40 Freq: Status: Active Protocol: Document 06/17/18 13:45 [facility] (Rec: 06/18/18 18:09 [facility] [id number]) Special Tests Foot/Ankle Special Tests Talor Tilt Test Results 2 Comments Possible ligamental damage Anterior Draw Test Results Positive PT-OP-M Strength Start: 06/18/18 17:40 Freq: Status: Active Protocol: Document 06/17/18 13:45 [facility] (Rec: 06/18/18 18:09 [facility] [id number]) Ankle/Foot Strength Ankle and Foot Manual Muscle Testing Left Dorsiflexion (L4) 5 Normal Plantarflexion (S1) 4 Good Inversion 5 Normal Eversion (S1) 4- Good- PT-OP-Q Treatments Start: 06/18/18 17:40 Freq: Status: Active Protocol: Document 07/15/18 11:15 [facility] (Rec: 07/15/18 11:25 [facility] [id number]) Gym Equipment Shuttle Balance 2 Details red Comments balance fwd & side WBOS & NBOS & balance fwd with staggered stance B 1 Details Red - Ankle PF/DF, Lateral Weight Shift Therapeutic Exercises Standing Exercises 2 Standing Exercise Name heel raises Reps/Minutes 20 Manual Therapy Treatment Soft Tissue Mobilization 1 Body Location Peroneal Tendon Mobilization Type Cross-Friction Intensity/Depth Superficial Body Position Sitting Taping 1 Body Location Fan across left lateral ankle Treatment Focus Stability, edema management Type of Tape Kinesio Tape Neuro Re-Education Treatment Balance Activities 3 Details tandem stance Comments head turns 2 Details SLS Comments EC & head turns PT-OP-R Modalities Start: 06/18/18 17:40 Freq: Status: Active Protocol: Document 07/15/18 11:15 [facility] (Rec: 07/15/18 11:25 [facility] [id number]) Hot Pack/Cold Pack Treatment Ice Massage Location Lateral ankle Patient Position Hooklying Treatment Duration (minutes) 5 Patient Tolerance Good PT-OP-T Assessment and Plan Start: 06/18/18 17:40 Freq: Status: Active Protocol: Document 07/15/18 11:15 [facility] (Rec: 07/15/18 11:25 [facility] [id number]) Physical Therapy Assessment Goals Three Impairment Strength Short Term Goal (STG) Ankle strength to 5/5 STG Duration 07/08/18 Two Impairment Activity Limitation Short Term Goal (STG) Pt to run with her children outside with no ankle pain STG Duration 07/08/18 One Impairment Joint Instability Short Term Goal (STG) Anterior Drawer test to negative STG Duration 07/08/18 Assessment Summary Assessment Pt is making progress, but cont to have dec balance. If cont to have pain with dec overall stability, pt may benefit from MRI Physical Therapy Plan Frequency and Duration Frequency of Treatment 2x/Week Duration of Treatment 8 weeks Plan of Care Start Date 06/17/18 Plan of Care End Date 08/12/18 Next Visit Focus/Plan Next Note Type Treatment Note Next Visit Plan Ice massage, ankle strengthening, joint stability , trial taping
--- NOTE | 2018-07-18 14:29 | PT.OTN ---
Current Diagnoses Sprain of unspecified ligament of left ankle, initial encounter (07/18/18) Sprain of unspecified ligament of left ankle, subsequent encounter (07/18/18) Physical Therapy Treatment Note PT-OP-A Visit Information Start: 06/18/18 17:40 Freq: Status: Active Protocol: Document 07/18/18 13:45 [facility] (Rec: 07/18/18 14:29 [facility] [id number]) Out-Patient Physical Therapy Visit Information Visit Information Visit Type Treatment Note Visit Start Time 13:45 Visit Stop Time 14:30 Total Visit Minutes 45 Visit Number 8 Number of MATHEMATICAL SCIENCES PROFESSOR Visits 0 Evaluation Information Evaluation Date 06/17/18 PT-OP-B Current Condition Start: 06/18/18 17:40 Freq: Status: Active Protocol: Document 06/17/18 13:45 [facility] (Rec: 06/18/18 18:09 [facility] [id number]) Current Condition History of Current Condition Onset Date s/p three weeks ankle sprain Current Complaints Left ankle pain, ankle instability, repeated chronic ankle sprain History of Current Condition Pt is a 33 year old female presenting three weeks s/p most recent left ankle sprain. Pt reports she has sprained her left ankle a few dozen times over the last 21 years, including 4 times within the past few months. Pt reports she was just walking when it gave out. Pt notes she is currently able to walk, but is scared to run after her kids. Pt reports there was bruising along the entire dorsal surface of her foot, as well as the entire was back around her heel. Pt recently went to the zoo with her kids, and while she felt okay while walking around there, she was very sore the following day and could not perform her normal household tasks. Prior Treatments and Tests x-ray - negative Future Testing and Treatments Planned Possible MRI Treatment Goals Patient/Caregiver Goals Pt would like to return to running around with her kids without worrying aboud spraining her ankle Prior Functional Status Baseline Function- ADL's Independent Baseline Function- Mobility Independent Current Functional Impairments (Reported) Functional Limitations- Recreation/ Unable to run or jump with Hobbies kids PT-OP-C Subjective Start: 06/18/18 17:40 Freq: Status: Active Protocol: Document 07/18/18 13:45 [facility] (Rec: 07/18/18 14:29 [facility] [id number]) OP-PT Subjective Patient Comments Patient Comments It feels good today. Yesterday it hurt a little, but not too bad. PT-OP-F Manual Assessment Start: 06/18/18 17:40 Freq: Status: Active Protocol: Document 06/17/18 13:45 [facility] (Rec: 06/18/18 18:09 [facility] [id number]) Manual Assessments Soft Tissue Assessment Soft Tissue Mobility Assessment Edema surrounding lateral malleolus, tenderness to palpation along peroneal tendon, pain at posterior talofibular ligament. No pain at anterior talofibular ligament Joint Mobility Assessment Joint Mobility Assessment Posterior->Anterior hypermobility at lateral talofibular joint PT-OP-K Range of Motion Start: 06/18/18 17:40 Freq: Status: Active Protocol: Document 06/17/18 13:45 [facility] (Rec: 06/18/18 18:09 [facility] [id number]) Ankle and Foot Goniometric Range of Motion Ankle and Foot Measured in Degrees Left Active Ankle/Foot ROM WFL Yes Testing Position Sitting PT-OP-L Special Tests Start: 06/18/18 17:40 Freq: Status: Active Protocol: Document 06/17/18 13:45 [facility] (Rec: 06/18/18 18:09 [facility] [id number]) Special Tests Foot/Ankle Special Tests Talor Tilt Test Results 2 Comments Possible ligamental damage Anterior Draw Test Results Positive PT-OP-M Strength Start: 06/18/18 17:40 Freq: Status: Active Protocol: Document 06/17/18 13:45 [facility] (Rec: 06/18/18 18:09 [facility] [id number]) Ankle/Foot Strength Ankle and Foot Manual Muscle Testing Left Dorsiflexion (L4) 5 Normal Plantarflexion (S1) 4 Good Inversion 5 Normal Eversion (S1) 4- Good- PT-OP-Q Treatments Start: 06/18/18 17:40 Freq: Status: Active Protocol: Document 07/18/18 13:45 [facility] (Rec: 07/18/18 14:29 [facility] [id number]) Gym Equipment Shuttle Recovery Unilateral Heel Raises Resistance 50# Bilateral Heel Raises Resistance 100# Shuttle Balance 1 Details Red - Ankle PF/DF, Lateral Weight Shift Manual Therapy Treatment Soft Tissue Mobilization 1 Body Location Peroneal Tendon Mobilization Type Cross-Friction Intensity/Depth Superficial Body Position Sitting Taping 1 Body Location Fan across left lateral ankle Treatment Focus Stability, edema management Type of Tape Kinesio Tape Neuro Re-Education Treatment Balance Activities 3 Details tandem stance Comments head turns 2 Details SLS Comments EC & head turns PT-OP-R Modalities Start: 06/18/18 17:40 Freq: Status: Active Protocol: Document 07/18/18 13:45 [facility] (Rec: 07/18/18 14:29 [facility] [id number]) Hot Pack/Cold Pack Treatment Ice Massage Location Lateral ankle Patient Position Hooklying Treatment Duration (minutes) 5 Patient Tolerance Good Ultrasound Therapy Treatment Left Lateral Ankle Treatment Duration (minutes) 8 Patient Position Hooklying Coupling Medium Ultrasound Gel Frequency Setting (mHz) 3 Mode Setting Pulsed Duty Cycle 50 Intensity Setting (w/cm2) 1.2 PT-OP-T Assessment and Plan Start: 06/18/18 17:40 Freq: Status: Active Protocol: Document 07/18/18 13:45 [facility] (Rec: 07/18/18 14:29 [facility] [id number]) Physical Therapy Assessment Impairments Impairments Activity Tolerance Edema Functional Activities Gait Pain Soft Tissue Mobility Strength Goals Three Impairment Strength Short Term Goal (STG) Ankle strength to 5/5 STG Duration 07/08/18 Two Impairment Activity Limitation Short Term Goal (STG) Pt to run with her children outside with no ankle pain STG Duration 07/08/18 One Impairment Joint Instability Short Term Goal (STG) Anterior Drawer test to negative STG Duration 07/08/18 Assessment Summary Assessment Pt continuing to make improvements in strength and stability Physical Therapy Plan Frequency and Duration Frequency of Treatment 2x/Week Duration of Treatment 8 weeks Plan of Care Start Date 06/17/18 Plan of Care End Date 08/12/18 Therapeutic Interventions Therapeutic Interventions Aquatic Therapy Balance Training Gait Training Home Exercise Program Manual Therapy Self-Care/Home Management Soft Tissue Mobilization Taping Therapeutic Exercises Modalities Cold Pack/Ice Massage Electric Stimulation Hot Packs Ultrasound Next Visit Focus/Plan Next Note Type Treatment Note Next Visit Plan Ice massage, ankle strengthening, joint stability , trial taping
--- NOTE | 2018-12-09 10:16 | PT.OPDS ---
Current Diagnoses Sprain of unspecified ligament of left ankle, initial encounter (07/18/18) Sprain of unspecified ligament of left ankle, subsequent encounter (07/18/18) Provider Visit Care Team Role Provider Type Anum Melo DO Family Provider Physician Primary Care Provider Specialty: Family Practice Address: [address] [place] [address], [id number] Email: [email or web address] Barnes MD Attending Provider Physician Specialty: Internal Medicine Address: [address] [place] [address], [address] Email: Visit Number Visit Number 8 Discharge Summary PT-OP-B Current Condition Start: 06/18/18 17:40 Freq: Status: Active Protocol: Document 06/17/18 13:45 DCW (Rec: 06/18/18 18:09 DCW [id number]) Current Condition History of Current Condition Onset Date s/p three weeks ankle sprain Current Complaints Left ankle pain, ankle instability, repeated chronic ankle sprain History of Current Condition Pt is a 33 year old female presenting three weeks s/p most recent left ankle sprain. Pt reports she has sprained her left ankle a few dozen times over the last 21 years, including 4 times within the past few months. Pt reports she was just walking when it gave out. Pt notes she is currently able to walk, but is scared to run after her kids. Pt reports there was bruising along the entire dorsal surface of her foot, as well as the entire was back around her heel. Pt recently went to the zoo with her kids, and while she felt okay while walking around there, she was very sore the following day and could not perform her normal household tasks. Prior Treatments and Tests x-ray - negative Future Testing and Treatments Planned Possible MRI Treatment Goals Patient/Caregiver Goals Pt would like to return to running around with her kids without worrying aboud spraining her ankle Prior Functional Status Baseline Function- ADL's Independent Baseline Function- Mobility Independent Current Functional Impairments (Reported) Functional Limitations- Recreation/ Unable to run or jump with Hobbies kids PT-OP-F Manual Assessment Start: 06/18/18 17:40 Freq: Status: Active Protocol: Document 06/17/18 13:45 DCW (Rec: 06/18/18 18:09 DCW [id number]) Manual Assessments Soft Tissue Assessment Soft Tissue Mobility Assessment Edema surrounding lateral malleolus, tenderness to palpation along peroneal tendon, pain at posterior talofibular ligament. No pain at anterior talofibular ligament Joint Mobility Assessment Joint Mobility Assessment Posterior->Anterior hypermobility at lateral talofibular joint PT-OP-K Range of Motion Start: 06/18/18 17:40 Freq: Status: Active Protocol: Document 06/17/18 13:45 DCW (Rec: 06/18/18 18:09 DCW [id number]) Ankle and Foot Goniometric Range of Motion Ankle and Foot Measured in Degrees Left Active Ankle/Foot ROM WFL Yes Testing Position Sitting PT-OP-L Special Tests Start: 06/18/18 17:40 Freq: Status: Active Protocol: Document 06/17/18 13:45 DCW (Rec: 06/18/18 18:09 DCW [id number]) Special Tests Foot/Ankle Special Tests Talor Tilt Test Results 2 Comments Possible ligamental damage Anterior Draw Test Results Positive PT-OP-M Strength Start: 06/18/18 17:40 Freq: Status: Active Protocol: Document 06/17/18 13:45 DCW (Rec: 06/18/18 18:09 DCW [id number]) Ankle/Foot Strength Ankle and Foot Manual Muscle Testing Left Dorsiflexion (L4) 5 Normal Plantarflexion (S1) 4 Good Inversion 5 Normal Eversion (S1) 4- Good- PT-OP-T Assessment and Plan Start: 06/18/18 17:40 Freq: Status: Active Protocol: Document 12/09/18 10:14 DCW (Rec: 12/09/18 10:16 DCW [id number]) Physical Therapy Assessment Goals Three Impairment Strength Short Term Goal (STG) Ankle strength to 5/5 STG Duration 07/08/18 Two Impairment Activity Limitation Short Term Goal (STG) Pt to run with her children outside with no ankle pain STG Duration 07/08/18 One Impairment Joint Instability Short Term Goal (STG) Anterior Drawer test to negative STG Duration 07/08/18 Assessment Summary Assessment Therapist called to discuss pt 's current level of function on 08/29/18. Pt at that time felt she was doing well, but requested leaving chart open for a little longer in case she required more therapy. Pt has now not been seen in more than four months, and will be discharged from skilled therapy at this time. Physical Therapy Plan Discharge Physical Therapy Discharge Reasons No Longer Attending PT
== END 2018-07-19 11:14 ==
LOC: PHYS 13:45
PROVIDERS: Family Provider Family Medicine; PCP Family Medicine; Visit Provider Internal Medicine
DX: S93.402D Sprain of unspecified ligament of left ankle, subsequent encounter (principal); S93.402A Sprain of unspecified ligament of left ankle, initial encounter
CPT/HCPCS: 97035; 97110; 97112; 97140; 97162

== ENCOUNTER → 2018-11-04 08:38 | Outpatient (CLI) | payer OTHER, MEDICAID, SELFPAY ==
[2018-11-05 18:27] LABS: Ionized Calcium 4.4 mg/dL (4.8-5.6)
== END ==
PROVIDERS: Family Provider Family Medicine; PCP Family Medicine; Visit Provider Family Medicine
DX: E03.9 Hypothyroidism, unspecified (principal); E83.51 Hypocalcemia
CPT/HCPCS: 36415; 82330; 84443

== ENCOUNTER 2018-11-08 08:55 | Emergency (ER) | payer OTHER, MEDICAID, SELFPAY ==
[2018-11-08 09:06] VITALS: BP 133/79; PULSE 88; RESP 14; TEMP 36.7; O2SAT 97
--- NOTE | 2018-11-08 09:14 | DI.RAD.S_ITS ---
PROCEDURE: XR HAND LT MIN 3V INDICATIONS: fall, pain TECHNIQUE: 3 views of the hand(s) acquired. COMPARISON: None. FINDINGS: Bones: No fractures or dislocations. Carpal bones are normally aligned. No suspicious bony lesions. Soft tissues: No suspicious soft tissue calcifications. IMPRESSION: No acute osseous abnormality of the left hand. Dictated by: Gal Chaidez M.D. on 11/08/2018 at 8:43 Approved by: Gal Chaidez M.D. on 11/08/2018 at 8:43
--- NOTE | 2018-11-08 09:14 | DI.RAD.S_ITS ---
PROCEDURE: XR KNEE LT 3V INDICATIONS: fall, pain TECHNIQUE: 3 views of the knee were acquired. COMPARISON: [facility], , KNEE 3V LEFT, 09/17/2008, 11:56. FINDINGS: Bones: No fractures or dislocations. No suspicious bony lesions. No significant degenerative changes of the left knee are evident. Soft tissues: No joint effusion. No suspicious soft tissue calcifications. IMPRESSION: Unremarkable left knee radiographs. No fractures. Dictated by: Gal Chaidez M.D. on 11/08/2018 at 8:44 Approved by: Gal Chaidez M.D. on 11/08/2018 at 8:44
--- NOTE | 2018-11-08 10:19 | PC.NURSE ---
good cms, left radial and left pedal .
--- NOTE | 2018-11-08 11:02 | ED.FALL ---
HPI - Fall General Chief Complaint: Fall Stated Complaint: FELL L KNEE PAIN/L HAND INJURY Time Seen by Provider: 11/08/18 10:49 Source: patient Mode of arrival: ambulatory Limitations: no limitations History of Present Illness HPI Narrative: This is a 33-year-old female who states she tripped yesterday and fell on to pavement. Patient states that she hit her chin, she denies any other head injury, no loss of consciousness or neck or back pain. She landed on her left hand and right on her left knee. She has an abrasion her left knee she has pain particularly with weight-bearing but is able to walk on it. She states that she can bend and move it normally, she states occasionally it feels like it might give out but it feels pretty stable. She also has some abrasions over the knee itself. Patient also has bruising of her fingers as states she has trouble bending the distal joint of the middle finger on her left hand. She does not have any new numbness, tingling or weakness. She is denying any other injuries. She states her tetanus is up-to-date. Related Data Home Medications Medication Instructions Recorded Confirmed albuterol sulfate [Ventolin HFA] 2 puff INH Q4HP PRN 11/08/18 11/08/18 [id number] 0 tab PO Q6HP PRN 11/08/18 11/08/18 cetirizine 10 mg PO QDAYP PRN 11/08/18 11/08/18 levothyroxine 137 mcg PO DAILY 11/08/18 11/08/18 Previous Rx's Medication Instructions Recorded fluticasone 1 spray INTRANASAL BID #16 gm 11/07/17 beclomethasone dipropionate [Qvar] 1 puff INH BID #1 inh 01/07/18 calcitriol 0.25 mcg capsule 0.75 mcg PO ONCE #90 cap 05/31/18 omeprazole 40 mg PO QDAY #90 cap 07/26/18 calcitriol 0.5 mcg capsule 0.5 mcg PO DAILY #90 cap 08/23/18 lamotrigine 100 mg tablet 100 mg PO QDAY #30 tab 11/01/18 escitalopram oxalate 5 mg PO QDAY #30 tab 11/04/18 Allergies Allergy/AdvReac Type Severity Reaction Status Date / Time Penicillins [PENICILLINS] Allergy Mild HIVES Verified 11/08/18 09:10 adhesive [ADHESIVE] AdvReac Mild sensitive Verified 11/08/18 09:10 to tape, rash Review of Systems Review of Systems All systems reviewed & are unremarkable except as noted in HPI and below Constitutional Denies other (LOC) ENT Ears, Nose, Mouth, and Throat: Denies neck pain Musculoskeletal Reports as per HPI, Reports abnormal gait, Denies back pain, Denies deformity, Denies joint swelling, Reports limited range of motion, Denies neck pain, Denies numbness, Reports stiffness, Denies tingling and Reports other (pain, abrasion left knee. swelling, bruising, pain fingers left hand) Integumentary/Breasts Reports as per HPI, Reports unusual bruising and Reports wounds Neurologic Reports abnormal gait, Denies numbness and Denies tingling Exam Narrative Exam Narrative: GEN: Patient appears in mild distress. Patient was walking about the department into the bathroom without issue HEAD: Patient has a small 1 cm abrasion on her chin, no other signs of trauma, no raccoon/Huerta sign. NECK: Nontender, painless range of motion, trachea midline Negative Nexus criteria, there is no mid line tenderness, distracting injury, altered mental status, neuro deficit, recent EtOH. EYES: PERRLA, EOMI ENT: External inspection normal except as above, trachea is midline, airway is normal and with normal occlusion, No bony tenderness RESP: Chest is nontender and has symmetric movement, breath sounds are normal no crackles, wheezes or rales CVS: Heart sounds are normal, no murmur noted ABG/GI: Nontender, soft, normal bowel sounds, no distention, no organomegaly NEURO: Oriented AOx3, neuro is grossly intact, sensation and motor is normal all 4 extremities moving, cranial nerves II through XII are intact, GCS is 15 PSYCH: Normal mood and affect SKIN: Patient has 2 linear abrasions about a cm by 4 cm over the left knee, warm and dry, no crepitus and without decubitus, patient also has several small abrasions over the dorsum of the hand. No signs of erythema, no signs of purulent drainage or infection BACK: No CVA tenderness, no vertebral tenderness, no step-off's, no crepitus EXT: Patient's left knee has no distinct bony pain with palpation, she has full range of motion with normal joint laxity, her left hand has swelling and bruising particularly the 2nd and 3rd fingers. Patient has some difficulty with active flexion of the distal interphalangeal joint on the 3rd finger but has normal motion with the passive range of motion. Patient does have quite a bit of bruising in both fingers extending with some mild swelling. She has normal cap refill less than 2 sec. She has no other bony tenderness. 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) Hypocalcemia (Chronic) Hypothyroidism (Chronic) Pinguecula, bilateral (Chronic) demise (Resolved 07/01/15) Graves' disease (Resolved) 7 (Resolved) Hyperthyroidism (Resolved) Surgical History History of thyroidectomy (Resolved 10/2013) Status post delivery (Resolved 01/31/17) Social History marital status: Smoking Status: Never smoker alcohol intake: never substance use type: does not use Course Orders Ordered: ED Orders 11/08/18 09:14 XR hand LT min 3V Stat XR knee LT 3V Stat Vital Signs - 8 hr 11/08/18 11:27 Pulse Rate 73 Respiratory Rate 18 Blood Pressure 148/88 H Pulse Oximetry 98 MDM - Fall Imaging Data knee: Radiologist's impression: [address] [address] XRay Report Signed Patient: Miriam Currie MR#: [id number] : 1985 Acct:[id number] Age/Sex: 33 / F Date of Service: 11/08/18 Loc: ED Accession Number: [id number] Procedure: XR knee LT 3V Ordering Provider: Aurora Jose D.O. PROCEDURE: XR KNEE LT 3V INDICATIONS: fall, pain TECHNIQUE: 3 views of the knee were acquired. COMPARISON: , , KNEE 3V LEFT, 09/17/2008, 11:56. FINDINGS: Bones: No fractures or dislocations. No suspicious bony lesions. No significant degenerative changes of the left knee are evident. Soft tissues: No joint effusion. No suspicious soft tissue calcifications. IMPRESSION: Unremarkable left knee radiographs. No fractures. Dictated by: Gal Chaidez M.D. on 11/08/2018 at 8:44 Approved by: Gal Chaidez M.D. on 11/08/2018 at 8:44 hand: Radiologist's impression: [place] [address] XRay Report Signed Patient: Miriam Currie MR#: [id number] : 1985 Acct:[id number] Age/Sex: 33 / F Date of Service: 11/08/18 Loc: ED Accession Number: [id number] Procedure: XR hand LT min 3V Ordering Provider: Aurora Jose D.O. PROCEDURE: XR HAND LT MIN 3V INDICATIONS: fall, pain TECHNIQUE: 3 views of the hand(s) acquired. COMPARISON: None. FINDINGS: Bones: No fractures or dislocations. Carpal bones are normally aligned. No suspicious bony lesions. Soft tissues: No suspicious soft tissue calcifications. IMPRESSION: No acute osseous abnormality of the left hand. Dictated by: Gal Chaidez M.D. on 11/08/2018 at 8:43 Approved by: Gal Chaidez M.D. on 11/08/2018 at 8:43 [facility] Narrative Medical decision making narrative: Patient has some mild pain is well controlled, she states her tetanus is up-to-date. Given Matthew bandage for some compression and have her follow up with primary care for symptoms are not resolving. Repeat evaluation patient Um and I were speaking and she actually was able to flex bit more at the distal interphalangeal joints on both fingers so my suspicion for any ligamentous or tendon injury is actually quite a bit decreased. Discharge Plan Departure Patient Disposition: Home Clinical Impression: Strain of left knee, Abrasion of chin, Sprain of finger of left hand, Contusion, fingers Discharge Date/Time: 11/08/18 11:27 Interventions: ED Discharge Assessment Last Done: 11/08/18 11:27 Instructions: DI for Knee Sprain Activity Restrictions/Additional Instructions: Follow-up with her primary care physician in the next 10-14 days if your symptoms are not resolving. You may resume normal activity as tolerated. Use Matthew bandage to the left knee as needed. Take ibuprofen and/or Tylenol as needed for pain. You may use ice to the affected area as needed. Keep wounds clean and dry. Wash twice daily with warm soapy water. Return to the emergency department for any signs of infection in her abrasions such as redness, swelling or purulent drainage, increasing pain, new weakness, new numbness, loss of sensation or other new or concerning symptoms. Prescriptions: No Action fluticasone 16 GM spray,suspension 1 spray Intranasal BID Qty: 16 RF: 5 beclomethasone dipropionate [Qvar] 80 MCG/PUFF aerosol 1 puff INH BID Qty: 1 RF: 0 calcitriol 0.25 mcg capsule 0.75 mcg PO ONCE Qty: 90 RF: 5 omeprazole 40 mg capsule,delayed release(DR/EC) 40 mg PO QDAY Qty: 90 RF: 3 calcitriol 0.5 mcg capsule 0.5 mcg PO DAILY Qty: 90 RF: 1 lamotrigine [Lamictal] 100 mg tablet 100 mg PO QDAY Qty: 30 RF: 2 escitalopram oxalate 5 mg tablet 5 mg PO QDAY Qty: 30 RF: 1 cetirizine 10 mg tablet 10 mg PO QDAYP PRN (Reason: allergies) RF: 0 crinedmwhg-fteefkgfzxqeh-oibj 1 EACH tablet PO Q6HP PRN (Reason: migrainge) RF: 0 albuterol sulfate [Ventolin HFA] 90 MCG/PUFF HFA aerosol inhaler 2 puff INH Q4HP PRN (Reason: Wheezing) RF: 0 levothyroxine 137 mcg tablet 137 mcg PO DAILY RF: 0 Referrals: Anum Melo DO [Primary Care Provider] -
--- NOTE | 2018-11-08 11:05 | ED_ITS ---
HPI - Fall General Chief Complaint: Fall Stated Complaint: FELL L KNEE PAIN/L HAND INJURY Time Seen by Provider: 11/08/18 10:49 Source: patient Mode of arrival: ambulatory Limitations: no limitations History of Present Illness HPI Narrative: This is a 33-year-old female who states she tripped yesterday and fell on to pavement. Patient states that she hit her chin, she denies any other head injury, no loss of consciousness or neck or back pain. She landed on her left hand and right on her left knee. She has an abrasion her left knee she has pain particularly with weight-bearing but is able to walk on it. She states that she can bend and move it normally, she states occasionally it feels like it might give out but it feels pretty stable. She also has some abrasions over the knee itself. Patient also has bruising of her fingers as states she has trouble bending the distal joint of the middle finger on her left hand. She does not have any new numbness, tingling or weakness. She is denying any other injuries. She states her tetanus is up-to-date. Related Data Home Medications Medication Instructions Recorded Confirmed albuterol sulfate [Ventolin HFA] 2 puff INH Q4HP PRN 11/08/18 11/08/18 cgbtzdffxm-zjnsgkkwuhebq-uios 0 tab PO Q6HP PRN 11/08/18 11/08/18 cetirizine 10 mg PO QDAYP PRN 11/08/18 11/08/18 levothyroxine 137 mcg PO DAILY 11/08/18 11/08/18 Previous Rx's Medication Instructions Recorded fluticasone 1 spray INTRANASAL BID #16 gm 11/07/17 beclomethasone dipropionate [Qvar] 1 puff INH BID #1 inh 01/07/18 calcitriol 0.25 mcg capsule 0.75 mcg PO ONCE #90 cap 05/31/18 omeprazole 40 mg PO QDAY #90 cap 07/26/18 calcitriol 0.5 mcg capsule 0.5 mcg PO DAILY #90 cap 08/23/18 lamotrigine 100 mg tablet 100 mg PO QDAY #30 tab 11/01/18 escitalopram oxalate 5 mg PO QDAY #30 tab 11/04/18 Allergies Allergy/AdvReac Type Severity Reaction Status Date / Time Penicillins [PENICILLINS] Allergy Mild HIVES Verified 11/08/18 09:10 adhesive [ADHESIVE] AdvReac Mild sensitive Verified 11/08/18 09:10 to tape, rash Review of Systems Review of Systems All systems reviewed & are unremarkable except as noted in HPI and below Constitutional Denies other (LOC) ENT Ears, Nose, Mouth, and Throat: Denies neck pain Musculoskeletal Reports as per HPI, Reports abnormal gait, Denies back pain, Denies deformity, Denies joint swelling, Reports limited range of motion, Denies neck pain, Denies numbness, Reports stiffness, Denies tingling and Reports other (pain, abrasion left knee. swelling, bruising, pain fingers left hand) Integumentary/Breasts Reports as per HPI, Reports unusual bruising and Reports wounds Neurologic Reports abnormal gait, Denies numbness and Denies tingling Exam Narrative Exam Narrative: GEN: Patient appears in mild distress. Patient was walking about the department into the bathroom without issue HEAD: Patient has a small 1 cm abrasion on her chin, no other signs of trauma, no raccoon/Huerta sign. NECK: Nontender, painless range of motion, trachea midline Negative Nexus criteria, there is no mid line tenderness, distracting injury, altered mental status, neuro deficit, recent EtOH. EYES: PERRLA, EOMI ENT: External inspection normal except as above, trachea is midline, airway is normal and with normal occlusion, No bony tenderness RESP: Chest is nontender and has symmetric movement, breath sounds are normal no crackles, wheezes or rales CVS: Heart sounds are normal, no murmur noted ABG/GI: Nontender, soft, normal bowel sounds, no distention, no organomegaly NEURO: Oriented AOx3, neuro is grossly intact, sensation and motor is normal all 4 extremities moving, cranial nerves II through XII are intact, GCS is 15 PSYCH: Normal mood and affect SKIN: Patient has 2 linear abrasions about a cm by 4 cm over the left knee, warm and dry, no crepitus and without decubitus, patient also has several small abrasions over the dorsum of the hand. No signs of erythema, no signs of purulent drainage or infection BACK: No CVA tenderness, no vertebral tenderness, no step-off's, no crepitus EXT: Patient's left knee has no distinct bony pain with palpation, she has full range of motion with normal joint laxity, her left hand has swelling and bruising particularly the 2nd and 3rd fingers. Patient has some difficulty with active flexion of the distal interphalangeal joint on the 3rd finger but has normal motion with the passive range of motion. Patient does have quite a bit of bruising in both fingers extending with some mild swelling. She has normal cap refill less than 2 sec. She has no other bony tenderness. 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) Hypocalcemia (Chronic) Hypothyroidism (Chronic) Pinguecula, bilateral (Chronic) demise (Resolved 07/01/15) Graves' disease (Resolved) 7 (Resolved) Hyperthyroidism (Resolved) Surgical History History of thyroidectomy (Resolved 10/2013) Status post delivery (Resolved 01/31/17) Social History marital status: Smoking Status: Never smoker alcohol intake: never substance use type: does not use Course Orders Ordered: ED Orders 11/08/18 09:14 XR hand LT min 3V Stat XR knee LT 3V Stat Vital Signs - 8 hr 11/08/18 11:27 Pulse Rate 73 Respiratory Rate 18 Blood Pressure 148/88 H Pulse Oximetry 98 MDM - Fall Imaging Data knee: Radiologist's impression: [address] [address] XRay Report Signed Patient: Miriam Currie MR#: [id number] : 1985 Acct:[id number] Age/Sex: 33 / F Date of Service: 11/08/18 Loc: ED Accession Number: [id number] Procedure: XR knee LT 3V Ordering Provider: Aurora Jose D.O. PROCEDURE: XR KNEE LT 3V INDICATIONS: fall, pain TECHNIQUE: 3 views of the knee were acquired. COMPARISON: [facility], , KNEE 3V LEFT, 09/17/2008, 11:56. FINDINGS: Bones: No fractures or dislocations. No suspicious bony lesions. No significant degenerative changes of the left knee are evident. Soft tissues: No joint effusion. No suspicious soft tissue calcifications. IMPRESSION: Unremarkable left knee radiographs. No fractures. Dictated by: Gal Chaidez M.D. on 11/08/2018 at 8:44 Approved by: Gal Chaidez M.D. on 11/08/2018 at 8:44 hand: Radiologist's impression: [place] [address] XRay Report Signed Patient: Miriam Currie MR#: [id number] : 1985 Acct:[id number] Age/Sex: 33 / F Date of Service: 11/08/18 Loc: ED Accession Number: [id number] Procedure: XR hand LT min 3V Ordering Provider: Aurora Jose D.O. PROCEDURE: XR HAND LT MIN 3V INDICATIONS: fall, pain TECHNIQUE: 3 views of the hand(s) acquired. COMPARISON: None. FINDINGS: Bones: No fractures or dislocations. Carpal bones are normally aligned. No suspicious bony lesions. Soft tissues: No suspicious soft tissue calcifications. IMPRESSION: No acute osseous abnormality of the left hand. Dictated by: Gal Chaidez M.D. on 11/08/2018 at 8:43 Approved by: Gal Chaidez M.D. on 11/08/2018 at 8:43 [facility] Narrative Medical decision making narrative: Patient has some mild pain is well controlled , she states her tetanus is up-to-date. Given Matthew bandage for some compression and have her follow up with primary care for symptoms are not resolving. Repeat evaluation patient Um and I were speaking and she actually was able to flex bit more at the distal interphalangeal joints on both fingers so my suspicion for any ligamentous or tendon injury is actually quite a bit decreased. Discharge Plan Departure Patient Disposition: Home Clinical Impression: Strain of left knee, Abrasion of chin, Sprain of finger of left hand, Contusion , fingers Discharge Date/Time: 11/08/18 11:27 Interventions: ED Discharge Assessment Last Done: 11/08/18 11:27 Instructions: DI for Knee Sprain Activity Restrictions/Additional Instructions: Follow-up with her primary care physician in the next 10-14 days if your symptoms are not resolving. You may resume normal activity as tolerated. Use Matthew bandage to the left knee as needed. Take ibuprofen and/or Tylenol as needed for pain. You may use ice to the affected area as needed. Keep wounds clean and dry. Wash twice daily with warm soapy water. Return to the emergency department for any signs of infection in her abrasions such as redness, swelling or purulent drainage, increasing pain, new weakness, new numbness, loss of sensation or other new or concerning symptoms. Prescriptions: No Action fluticasone 16 GM spray,suspension 1 spray Intranasal BID Qty: 16 RF: 5 beclomethasone dipropionate [Qvar] 80 MCG/PUFF aerosol 1 puff INH BID Qty: 1 RF: 0 calcitriol 0.25 mcg capsule 0.75 mcg PO ONCE Qty: 90 RF: 5 omeprazole 40 mg capsule,delayed release(DR/EC) 40 mg PO QDAY Qty: 90 RF: 3 calcitriol 0.5 mcg capsule 0.5 mcg PO DAILY Qty: 90 RF: 1 lamotrigine [Lamictal] 100 mg tablet 100 mg PO QDAY Qty: 30 RF: 2 escitalopram oxalate 5 mg tablet 5 mg PO QDAY Qty: 30 RF: 1 cetirizine 10 mg tablet 10 mg PO QDAYP PRN (Reason: allergies) RF: 0 eestgupwyg-fuzgtgyrimfcv-iroj 1 EACH tablet PO Q6HP PRN (Reason: migrainge) RF: 0 albuterol sulfate [Ventolin HFA] 90 MCG/PUFF HFA aerosol inhaler 2 puff INH Q4HP PRN (Reason: Wheezing) RF: 0 levothyroxine 137 mcg tablet 137 mcg PO DAILY RF: 0 Referrals: Anum Melo DO [Primary Care Provider] -
[2018-11-08 11:27] VITALS: BP 148/88; PULSE 73; RESP 18; O2SAT 98
== END 2018-11-08 11:27 | disposition home or self-care (01) ==
PROVIDERS: Emergency Provider Emergency Medicine; Family Provider Family Medicine; PCP Family Medicine
DX: S83.92XA Sprain of unspecified site of left knee, initial encounter (principal); S00.81XA Abrasion of other part of head, initial encounter; S63.613A Unspecified sprain of left middle finger, initial encounter; W01.0XXA Fall on same level from slipping, tripping and stumbling without subsequent striking against object, initial encounter
CPT/HCPCS: 73130; 73562; 99283; 99284

== ENCOUNTER → 2018-11-30 08:55 | Outpatient (CLI) | payer OTHER, MEDICAID, SELFPAY ==
[2018-12-03 16:13] LABS: Ionized Calcium 4.5 mg/dL (4.8-5.6)
== END ==
PROVIDERS: PCP Family Medicine; Visit Provider Family Medicine
DX: E83.51 Hypocalcemia (principal)
CPT/HCPCS: 36415; 82330

== ENCOUNTER → 2019-03-12 08:17 | Outpatient (CLI) | payer OTHER, MEDICAID, SELFPAY ==
[2019-03-12 09:53] LABS: BUN Creatinine Ratio 22.9 (6-22); Blood Urea Nitrogen 16 mg/dL (7-17); Calcium 8.3 mg/dL (8.4-10.2); Carbon Dioxide 30 mmol/L (22-32); Chloride 98 mmol/L (98-107); Estimated Glomerular Filt Rate > 60.0 mL/min (>60); Glucose 92 mg/dL (70-100); HEMOLYSIS < 15 (0-50); Potassium 3.7 mmol/L (3.4-5.1); Sodium 139 mmol/L (137-145)
[2019-03-13 13:01] LABS: Ionized Calcium 4.6 mg/dL (4.8-5.6)
== END ==
PROVIDERS: PCP Family Medicine; Visit Provider Family Medicine
DX: E03.9 Hypothyroidism, unspecified (principal); E05.00 Thyrotoxicosis with diffuse goiter without thyrotoxic crisis or storm; E83.51 Hypocalcemia
CPT/HCPCS: 36415; 80048; 82330; 84443

== ENCOUNTER → 2019-06-03 14:42 | Outpatient (CLI) | payer OTHER, MEDICAID, SELFPAY ==
[2019-06-03 15:09] LABS: Add Manual Diff / Slide Review NO; Basophils Absolute Auto 100 /uL (0-100); Basophils Percent Auto 0.8 % (0-2); Eosinophils Absolute Auto 100 /uL (0-450); Eosinophils Percent Auto 0.9 % (2-4); Hematocrit 39.4 % (36-46); Hemoglobin 13.2 g/dL (12.0-16.0); Lymphocytes Absolute Auto 3000 /uL (1100-4500); Lymphocytes Percent Auto 29.7 % (25-40); Mean Corpuscular HGB Conc 33.5 % (30-36); Mean Corpuscular Hemoglobin 28.5 PG (26-34); Monocytes Absolute Auto 500 /uL (0-900); Monocytes Percent Auto 5.3 % (3-14); Neutrophils Absolute Auto 6400 /uL (1500-7000); Neutrophils Percent Auto 63.3 % (50-75); Platelet Count 283 X10^3/uL (150-400); Red Blood Cell Count 4.64 X10^6/uL (4.0-5.2); Red Cell Distribution Width 12.7 % (11.6-14.8); White Blood Cell Count 10.1 X10^3/uL (4.5-11.0)
== END ==
PROVIDERS: PCP Family Medicine; Visit Provider Hospitalist
DX: Z86.2 Personal history of diseases of the blood and blood-forming organs and certain disorders involving the immune mechanism (principal)
CPT/HCPCS: 36415; 85025

== ENCOUNTER → 2019-08-21 08:40 | Outpatient (CLI) | payer OTHER, MEDICAID, SELFPAY ==
[2019-08-21 09:55] LABS: Alanine Aminotransferase 23 IU/L (9-52); Albumin 4.4 g/dL (3.5-5.0); Albumin Globulin Ratio 1.5 (1.0-2.8); Alkaline Phosphatase 79 U/L (38-126); Aspartate Aminotransferase 27 IU/L (14-36); BUN Creatinine Ratio 18.3 (6-22); Bilirubin Total 0.7 mg/dL (0.2-1.3); Blood Urea Nitrogen 11 mg/dL (7-17); Calcium 8.6 mg/dL (8.4-10.2); Carbon Dioxide 28 mmol/L (22-32); Chloride 100 mmol/L (98-107); Estimated Glomerular Filt Rate > 60.0 mL/min (>60); Glucose 88 mg/dL (70-100); HEMOLYSIS < 15 (0-50); Potassium 3.8 mmol/L (3.4-5.1); Sodium 138 mmol/L (137-145); Total Protein 7.4 g/dL (6.3-8.2)
[2019-08-21 10:22] LABS: TSH w/ Reflex to FT4 0.36 uIU/mL (0.47-4.68)
[2019-08-21 12:06] LABS: Free T4, Direct Thyroxine 1.61 ng/dL (0.78-2.19)
== END ==
PROVIDERS: PCP Family Medicine; Visit Provider Family Medicine
DX: E05.00 Thyrotoxicosis with diffuse goiter without thyrotoxic crisis or storm (principal); E83.51 Hypocalcemia; F31.76 Bipolar disorder, in full remission, most recent episode depressed; F41.9 Anxiety disorder, unspecified
CPT/HCPCS: 36415; 80053; 84439; 84443

== ENCOUNTER → 2020-05-24 15:55 | Outpatient (CLI) | payer OTHER, MEDICAID, SELFPAY ==
[2020-05-24 16:19] LABS: Add Manual Diff / Slide Review NO; Basophils Absolute Auto 100 /uL (0-100); Basophils Percent Auto 1.4 % (0-2); Eosinophils Absolute Auto 100 /uL (0-450); Eosinophils Percent Auto 0.7 % (2-4); Hematocrit 37.9 % (36-46); Hemoglobin 12.4 g/dL (12.0-16.0); Lymphocytes Absolute Auto 2500 /uL (1100-4500); Lymphocytes Percent Auto 24.4 % (25-40); Mean Corpuscular HGB Conc 32.8 % (30-36); Mean Corpuscular Volume 85.4 fL (80-100); Monocytes Absolute Auto 500 /uL (0-900); Monocytes Percent Auto 5.2 % (3-14); Neutrophils Absolute Auto 7100 /uL (1500-7000); Neutrophils Percent Auto 68.3 % (50-75); Platelet Count 260 X10^3/uL (150-400); Red Blood Cell Count 4.44 X10^6/uL (4.0-5.2); Red Cell Distribution Width 14.1 % (11.6-14.8); White Blood Cell Count 10.4 X10^3/uL (4.5-11.0)
[2020-05-24 16:34] LABS: Alanine Aminotransferase 11 IU/L (<35); Albumin 4.6 g/dL (3.5-5.0); Albumin Globulin Ratio 1.5 (1.0-2.8); Alkaline Phosphatase 62 U/L (38-126); Aspartate Aminotransferase 20 IU/L (14-36); BUN Creatinine Ratio 12.3 (6-22); Bilirubin Total 0.7 mg/dL (0.2-1.3); Blood Urea Nitrogen 7 mg/dL (7-17); Calcium 8.8 mg/dL (8.4-10.2); Carbon Dioxide 28 mmol/L (22-32); Chloride 102 mmol/L (98-107); Estimated Glomerular Filt Rate > 60.0 mL/min (>60); Globulin 3.1 g/dL (1.7-4.1); Glucose 89 mg/dL (70-100); HEMOLYSIS < 15 (0-50); Potassium 3.6 mmol/L (3.4-5.1); Sodium 140 mmol/L (137-145); Total Protein 7.7 g/dL (6.3-8.2)
[2020-05-24 17:26] LABS: Free T4, Direct Thyroxine 1.03 ng/dL (0.78-2.19)
[2020-05-24 17:39] LABS: Thyroid Stimulating Hormone 6.27 uIU/mL (0.47-4.68)
[2020-05-25 13:11] LABS: Ionized Calcium 4.5 mg/dL (4.5-5.6)
== END ==
PROVIDERS: PCP Family Medicine; Referring Provider Family Medicine; Visit Provider Family Medicine
DX: E05.00 Thyrotoxicosis with diffuse goiter without thyrotoxic crisis or storm (principal); E83.51 Hypocalcemia
CPT/HCPCS: 36415; 80053; 82330; 84439; 84443; 85025

== ENCOUNTER → 2020-07-24 11:58 | Outpatient (CLI) | payer OTHER, MEDICAID, SELFPAY ==
[2020-07-24 13:55] LABS: Free T3, Triiodothyronine Free 2.77 pg/mL (2.77-5.27); Free T4, Direct Thyroxine 0.97 ng/dL (0.78-2.19)
[2020-07-24 14:09] LABS: Thyroid Stimulating Hormone 3.99 uIU/mL (0.47-4.68)
== END ==
PROVIDERS: PCP Family Medicine; Referring Provider Family Medicine; Visit Provider Family Medicine
DX: E03.9 Hypothyroidism, unspecified (principal); E05.00 Thyrotoxicosis with diffuse goiter without thyrotoxic crisis or storm; E21.3 Hyperparathyroidism, unspecified; E83.51 Hypocalcemia
CPT/HCPCS: 36415; 82330; 84439; 84443; 84481

== ENCOUNTER → 2020-08-10 09:13 | Outpatient (CLI) | payer OTHER, MEDICAID, SELFPAY ==
[2020-08-10 11:31] LABS: Vitamin D 25 Hydroxy (D3) 50.3 ng/mL (30.0-100.0)
[2020-08-11 10:29] LABS: Ionized Calcium 4.5 mg/dL (4.5-5.6)
== END ==
PROVIDERS: PCP Family Medicine; Referring Provider Family Medicine; Visit Provider Family Medicine
DX: E83.51 Hypocalcemia (principal)
CPT/HCPCS: 36415; 82306; 82330

== ENCOUNTER 2020-08-22 17:24 | Emergency (ER) | payer OTHER, MEDICAID, SELFPAY ==
[2020-08-22 17:30] VITALS: BP 143/80; PULSE 121; RESP 20; TEMP 36.9; O2SAT 98
--- NOTE | 2020-08-22 17:46 | DI.RAD.S_ITS ---
PROCEDURE: XR RIBS RT MIN 3V W CXR 1V INDICATIONS: R lower rib pain TECHNIQUE: 2 views of the right-sided ribs were acquired, along with a single view chest. COMPARISON: None. FINDINGS: Surgical changes and devices: None. Bones and chest wall: No displaced rib fracture or suggestion of a nondisplaced rib fracture. No suspicious bony lesions. Overlying soft tissues appear unremarkable. Lungs and pleura: No pleural effusions or pneumothorax. Lungs appear clear. Mediastinum: Mediastinal contours appear normal. Heart size is normal. IMPRESSION: No displaced rib fracture or suggestion of a nondisplaced rib fracture. No pneumothorax. Dictated by: Refugio Luz M.D. on 08/22/2020 at 17:09 Approved by: Refugio Luz M.D. on 08/22/2020 at 17:10
--- NOTE | 2020-08-22 17:46 | DI.US.S_ITS ---
PROCEDURE: US ABDOMEN LIMITED INDICATIONS: RUQ pain TECHNIQUE: Real-time scanning was performed of the abdominal and retroperitoneal organs, with image documentation. COMPARISON: None. FINDINGS: Liver: Liver is normal in size and homogeneous in echotexture. Gallbladder: The gallbladder appears normal without gallstones or gallbladder wall thickening. Negative sonographic Burks sign. Biliary ducts: Intrahepatic bile ducts are non-dilated. Extrahepatic bile duct caliber measures 2 mm. Normal is 6-7 mm or less in diameter, or 10 mm or less post-cholecystectomy. Pancreas: Visualized portions of the pancreas are sonographically normal. Aorta: Visualized proximal aorta is normal in caliber at less than 3 cm. Miscellaneous: No free abdominal fluid. IMPRESSION: No acute abnormality is seen in the right upper quadrant. Normal gallbladder. Dictated by: Jerod Arnold M.D. on 08/23/2020 at 11:41 Approved by: Jerod Arnold M.D. on 08/23/2020 at 11:44
--- NOTE | 2020-08-22 17:49 | ED_ITS ---
HPI - Abdominal Pain <Maranda AlcazarRICHA negrete - Last Filed: 08/22/20 21:18> General Chief Complaint: Abdominal Pain Stated Complaint: right side abdominal pain Time Seen by Provider: 08/22/20 17:30 Source: patient Mode of arrival: Ambulatory History of Present Illness HPI narrative: 35yo female with a history of bipolar, GERD, asthma, and Graves disease, presents emergency department complaining of right upper quadrant abdominal pain that started yesterday. She states she pulled a door close and noted a sudden onset of pain a few minutes afterwards. She states it started in her right upper quadrant pain and radiates to her ribs. She states it is worse when she bends forward or presses on the area. Patient denies any trauma to the area, she states the pain is ?annoying ?and intermittent. Denies worsening after eating. She denies any history of gallbladder problems or abdominal surgeries. Patient denies any fevers, chills, nausea, vomiting, diarrhea, chest pain, shortness of breath, cough, rhinorrhea, or any other concerns. Related Data Home Medications Medication Instructions Recorded Confirmed [id number] 0 tab PO Q6HP PRN 11/08/18 08/18/20 Previous Rx's Medication Instructions Recorded ibuprofen 600 mg tablet 600 mg PO TID PRN #20 tab 11/14/18 albuterol sulfate 90 mcg/actuation 2 inhalation INHALATION Q4HP PRN 07/24/19 aerosol inhaler #18 gram lamotrigine 200 mg tablet 200 mg PO DAILY #90 tab 07/24/19 fluticasone propionate 110 1 puff INHALATION Q12H #12 gram 09/30/19 mcg/actuation HFA aerosol inhaler omeprazole 20 mg capsule,delayed 20 mg PO DAILY #90 cap 10/09/19 release calcitriol 0.5 mcg capsule 0.5 mcg PO BID #180 cap 12/26/19 cetirizine 10 mg tablet 10 mg PO QDAYP PRN #90 tab 12/26/19 levothyroxine 150 mcg tablet 150 mcg PO DAILY #90 tab 05/27/20 montelukast 10 mg tablet 10 mg PO BEDTIME #30 tab 07/13/20 escitalopram oxalate 10 mg tablet 10 mg PO DAILY #90 tab 08/02/20 chlorhexidine gluconate 0.12 % 15 ml BUCCAL BID #118 ml 08/18/20 mouthwash clindamycin HCl 150 mg capsule 450 mg PO TID 7 Days #63 cap 08/18/20 Allergies Allergy/AdvReac Type Severity Reaction Status Date / Time Penicillins [PENICILLINS] Allergy Mild HIVES Verified 08/18/20 14:46 adhesive [ADHESIVE] AdvReac Mild sensitive Verified 08/18/20 14:46 to tape, rash Review of Systems <RICHA Persaud - Last Filed: 08/22/20 21:18> Review of Systems Narrative: REVIEW OF SYSTEMS: GENERAL: Denies fever or chills. HENT: No head trauma. EYES: No vision changes. CARDIOVASCULAR: No chest pain, palpitations, or orthopnea. RESPIRATORY: No shortness of breath or cough. GASTROINTESTINAL: Complains of right upper quadrant abdominal pain, see HPI GENITOURINARY: No flank pain. MUSCULOSKELETAL: No pain, weakness, or trauma. INTEGUMENTARY: No rash. NEURO: No numbness or tingling. PSYCH: No behavior or mood changes. 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 (Resolved 07/01/15) Graves' disease (Resolved) 7 (Resolved) Hyperthyroidism (Resolved) Hypocalcemia (Chronic) Hypothyroidism (Chronic) Mild persistent asthma (Acute) [place], bilateral (Chronic) Surgical History History of thyroidectomy (Resolved 10/2013) Status post delivery (Resolved 01/31/17) Social History marital status: Smoking Status: Former smoker alcohol intake: never substance use type: does not use Smoking Status: Former smoker alcohol intake frequency: other Substance Use Type: marijuana Exam <RICHA Persaud - Last Filed: 08/22/20 21:18> Initial Vital Signs Initial Vital Signs: Vital Signs Temperature 98.4 F 08/22/20 17:30 Pulse Rate 121 H 08/22/20 17:30 Respiratory Rate 20 08/22/20 17:30 Blood Pressure 143/80 H 08/22/20 17:30 Pulse Oximetry 98 08/22/20 17:30 PHYSICAL EXAMINATION: GENERAL: Well groomed, alert, and cooperative. Answers questions promptly and appropriately. Vital signs noted. HENT: Normocephalic, atraumatic. Hearing intact. Oral mucosa is pink and moist. EYES: Conjunctiva pink, sclera white, no periorbital swelling. CARDIOVASCULAR: S1 and S2 sounds normal. Regular rate and rhythm, no murmurs, clicks, or bruits. No pedal edema. CHEST: Tenderness to palpation of right lower ribs. RESPIRATORY: Normal respiratory rate, trachea midline, airway patent. No stridor, nasal flaring or accessory muscle use. Lungs are clear in all dean without wheeze, rhonchi, or crackles. GASTROINTESTINAL: Bowel sounds normoactive. Abdomen is soft, RUQ tenderness that extends to R lower rib tenderness with palp. No organomegaly, no palpable masses. GENITALURINARY: No flank tenderness. MUSCULOSKELETAL: Normal gait and coordination. Equal tone and mass bilaterally. EXTREMITIES: CMS intact, no pedal edema. SKIN: Warm, dry, soft, appropriate color for ethnicity. No lesions, rashes, or wounds to visualized areas. NEURO: Alert and Oriented X 3. Good coordination. No ataxia, or sensory defic its, or cognitive issues. PSYCH: Appropriate affect and mood. <Otis Zaman DO - Last Filed: 08/23/20 03:47> Initial Vital Signs Initial Vital Signs: Vital Signs Temperature 98.4 F 08/22/20 17:30 Pulse Rate 121 H 08/22/20 17:30 Respiratory Rate 20 08/22/20 17:30 Blood Pressure 143/80 H 08/22/20 17:30 Pulse Oximetry 98 08/22/20 17:30 Course <RICHA Persaud - Last Filed: 08/22/20 21:18> Course Course Narrative: 175: Patient initially tachycardic, given IV fluids, rate significantly decreased after administration of fluids. 2038: Patient reports improved pain., US reported preliminary is negative, official report will not go through until tomorrow morning. Orders Ordered: ED Orders 08/22/20 19:30 Urine Microscopic Stat Discontinued Medications Sodium Chloride (Normal Saline 0.9%) 1,000 mls @ 1,000 mls/hr IV BOLUS ONE Stop: 08/22/20 18:45 Last Infusion: 08/22/20 19:13 Dose: 1,000 mls/hr Documented by: Admin: 08/22/20 18:10 Dose: 1,000 mls/hr Documented by: KATARINA Vital Signs Vital signs: Vital Signs - 8 hr 08/22/20 20:29 Pulse Rate 80 Respiratory Rate 18 Blood Pressure 140/82 Pulse Oximetry 98 <Otis Zaman DO - Last Filed: 08/23/20 03:47> Orders Ordered: ED Orders 08/22/20 19:30 Urine Microscopic Stat Discontinued Medications Sodium Chloride (Normal Saline 0.9%) 1,000 mls @ 1,000 mls/hr IV BOLUS ONE Stop: 08/22/20 18:45 Last Infusion: 08/22/20 19:13 Dose: 1,000 mls/hr Documented by: Admin: 08/22/20 18:10 Dose: 1,000 mls/hr Documented by: KATARINA Vital Signs Vital signs: Vital Signs - 8 hr 08/22/20 20:29 Pulse Rate 80 Respiratory Rate 18 Blood Pressure 140/82 Pulse Oximetry 98 MDM - Abdominal Pain <RICHA Persaud - Last Filed: 08/22/20 21:18> Medical Records Attestation: I reviewed the patient's medical records. Lab Data Attestation: I reviewed the patient's lab results. Result diagrams: 08/22/20 18:04 08/22/20 18:04 Labs: Lab Results 08/22/20 08/22/20 08/22/20 Range/Units 18:04 18:04 19:30 WBC 11.1 H (4.5-11.0) X10^3/uL RBC 4.57 (4.0-5.2) X10^6/uL Hgb 13.0 (12.0-16.0) g/dL Hct 38.4 (36-46) % MCV 84.1 (80-100) fL MCH 28.3 (26-34) PG MCHC 33.7 (30-36) % RDW 13.3 (11.6-14.8) % Plt Count 278 (150-400) X10^3/uL Neut % (Auto) 66.9 (50-75) % Lymph % (Auto) 26.6 (25-40) % [place] % (Auto) 4.6 (3-14) % Eos % (Auto) 1.0 L (2-4) % Baso % (Auto) 0.9 (0-2) % Neut # (Auto) 7400 H (6437-4229) /uL Lymph # (Auto) 2900 (1225-7532) /uL [place] # (Auto) 500 (0-900) /uL Eos # (Auto) 100 (0-450) /uL Baso # (Auto) 100 (0-100) /uL Sodium 139 (137-145) mmol/L Potassium 4.1 (3.4-5.1) mmol/L Chloride 101 (98-107) mmol/L Carbon Dioxide 29 (22-32) mmol/L BUN 13 (7-17) mg/dL Creatinine 0.81 (0.52-1.04) mg/dL Estimated GFR > 60.0 (>60) mL/min BUN/Creatinine Ratio 16.0 (6-22) Glucose 146 H (70-100) mg/dL Calcium 8.9 (8.4-10.2) mg/dL Total Bilirubin 1.0 (0.2-1.3) mg/dL AST 29 (14-36) IU/L ALT 15 (<35) IU/L Alkaline Phosphatase 58 (38-126) U/L Total Protein 8.1 (6.3-8.2) g/dL Albumin 4.6 (3.5-5.0) g/dL Globulin 3.5 (1.7-4.1) g/dL Albumin/Globulin Ratio 1.3 (1.0-2.8) Lipase 46 (23-300) U/L Urine RBC TNP Urine WBC TNP Ur Squamous Epith Cells TNP Urine Bacteria TNP Ur Culture Indicated? Culture not indicate Micro UA Comment <1ml submitted urine Point of care testing: Point of Care Testing Test Results Negative Urine Dip Bedside Urine Glucose Negative Bedside Urine Bilirubin - Negative Bedside Urine Ketone - Negative Urine Specific [place] 1.010 Bedside Urine Occult Blood + Bedside Urine pH 6.0 Bedside Urine Protein - Negative Bedside Urine Urobilinogen - Negative Bedside Urine Nitrite - Negative Bedside Urine Leukocytes - Negative Esterase Imaging Data Extremity x-ray #1: Radiologist's Impression: [address] [id number] XRay Report Signed Patient: Miriam Currie [facility]#: [id number] : 1985Acct:[id number] Age/Sex: 35 / FDate of Service: 08/22/20 Loc: ED Accession Number: [id number] Procedure: XR ribs RT min 3V w CXR1V Ordering Provider: Maranda Cantu PROCEDURE: XR RIBS RT MIN 3V W CXR 1V INDICATIONS: R lower rib pain TECHNIQUE: 2 views of the right-sided ribs were acquired, along with a single view chest. COMPARISON: None. FINDINGS: Surgical changes and devices: None. Bones and chest wall: No displaced rib fracture or suggestion of a nondisplaced rib fracture. No suspicious bony lesions. Overlying soft tissues appear unremarkable. Lungs and pleura: No pleural effusions or pneumothorax. Lungs appear clear. Mediastinum: Mediastinal contours appear normal. Heart size is normal. IMPRESSION: No displaced rib fracture or suggestion of a nondisplaced rib fracture. No pneumothorax. Dictated by: Refugio Luz M.D. on 08/22/2020 at 17:09 Approved by: Refugio Luz M.D. on 08/22/2020 at 17:10 MDM Narrative Medical decision making narrative: 35-year-old female presents emergency department for right upper quadrant pain. I suspect this is most likely musculoskeletal in nature given reproducible pain to right lower ribs. Less likely acute abdominal etiology such as gallbladder etiology given negative laboratory work, pain is not worse with eating, and preliminary ultrasound result was negative. Tech reported ultrasound results will not result until tomorrow morning due to complications with machine. Differential includes cough costochondritis versus muscle strain. She was encouraged to take ibuprofen for the next few days, stretch the area, apply hot compresses as needed. Return precautions given for new or worsening symptoms. Patient agreed to plan of care verbalized understanding. <Otis Zaman DO - Last Filed: 08/23/20 03:47> Lab Data Labs: Lab Results 08/22/20 08/22/20 08/22/20 Range/Units 18:04 18:04 19:30 WBC 11.1 H (4.5-11.0) X10^3/uL RBC 4.57 (4.0-5.2) X10^6/uL Hgb 13.0 (12.0-16.0) g/dL Hct 38.4 (36-46) % MCV 84.1 (80-100) fL MCH 28.3 (26-34) PG MCHC 33.7 (30-36) % RDW 13.3 (11.6-14.8) % Plt Count 278 (150-400) X10^3/uL Neut % (Auto) 66.9 (50-75) % Lymph % (Auto) 26.6 (25-40) % [place] % (Auto) 4.6 (3-14) % Eos % (Auto) 1.0 L (2-4) % Baso % (Auto) 0.9 (0-2) % Neut # (Auto) 7400 H (5810-3100) /uL Lymph # (Auto) 2900 (3836-0080) /uL [place] # (Auto) 500 (0-900) /uL Eos # (Auto) 100 (0-450) /uL Baso # (Auto) 100 (0-100) /uL Sodium 139 (137-145) mmol/L Potassium 4.1 (3.4-5.1) mmol/L Chloride 101 (98-107) mmol/L Carbon Dioxide 29 (22-32) mmol/L BUN 13 (7-17) mg/dL Creatinine 0.81 (0.52-1.04) mg/dL Estimated GFR > 60.0 (>60) mL/min BUN/Creatinine Ratio 16.0 (6-22) Glucose 146 H (70-100) mg/dL Calcium 8.9 (8.4-10.2) mg/dL Total Bilirubin 1.0 (0.2-1.3) mg/dL AST 29 (14-36) IU/L ALT 15 (<35) IU/L Alkaline Phosphatase 58 (38-126) U/L Total Protein 8.1 (6.3-8.2) g/dL Albumin 4.6 (3.5-5.0) g/dL Globulin 3.5 (1.7-4.1) g/dL Albumin/Globulin Ratio 1.3 (1.0-2.8) Lipase 46 (23-300) U/L Urine RBC TNP Urine WBC TNP Ur Squamous Epith Cells TNP Urine Bacteria TNP Ur Culture Indicated? Culture not indicate Micro UA Comment <1ml submitted urine Point of care testing: Point of Care Testing Test Results Negative Urine Dip Bedside Urine Glucose Negative Bedside Urine Bilirubin - Negative Bedside Urine Ketone - Negative Urine Specific [place] 1.010 Bedside Urine Occult Blood + Bedside Urine pH 6.0 Bedside Urine Protein - Negative Bedside Urine Urobilinogen - Negative Bedside Urine Nitrite - Negative Bedside Urine Leukocytes - Negative Esterase Discharge Plan Departure Patient Disposition: Home Clinical Impression: Acute costochondritis Discharge Date/Time: 08/22/20 20:48 Instructions: DI for Costochondritis Activity Restrictions/Additional Instructions: Thank you for entrusting me with your care today. As discussed, your laboratory work, x-ray, and ultrasound are negative for any concerning symptoms. I suspect her symptoms are most likely caused by costochondritis or a muscle spasm, this can be caused by certain movements and inflammation of the cartilage to between your ribs. Take ibuprofen for 400-600 mg every 6 hours for the next few days. Return emergency department for any new or worsening symptoms. Prescriptions: No Action clindamycin HCl 150 mg capsule 450 mg PO TID 7 Days Qty: 63 RF: 0 chlorhexidine gluconate 0.12 % mouthwash 15 ml BUCCAL BID Qty: 118 RF: 0 fluticasone propionate 110 mcg/actuation HFA aerosol inhaler 1 puff INHALATION Q12H Qty: 12 RF: 11 omeprazole 20 mg capsule,delayed release(DR/EC) 20 mg PO DAILY Qty: 90 RF: 0 levothyroxine 150 mcg tablet 150 mcg PO DAILY Qty: 90 RF: 3 montelukast 10 mg tablet 10 mg PO BEDTIME Qty: 30 RF: 1 escitalopram oxalate 10 mg tablet 10 mg PO DAILY Qty: 90 RF: 3 ibuprofen 600 mg tablet 600 mg PO TID PRN (Reason: pain) Qty: 20 RF: 0 lamotrigine 200 mg tablet 200 mg PO DAILY Qty: 90 RF: 3 albuterol sulfate [Ventolin HFA] 90 mcg/actuation HFA aerosol inhaler 2 inhalation Inhalation Q4HP PRN (Reason: Wheezing) Qty: 18 RF: 6 calcitriol 0.5 mcg capsule 0.5 mcg PO BID Qty: 180 RF: 3 cetirizine 10 mg tablet 10 mg PO QDAYP PRN (Reason: allergies) Qty: 90 RF: 1 sdfyyrpnye-jxcaioxsvertj-vefp 1 EACH tablet 0 tab PO Q6HP PRN (Reason: migrainge) RF: 0 Referrals: Anum Melo DO [Primary Care Provider] - <Otis Zaman DO - Last Filed: 08/23/20 03:47> Cosign ED Attending Patriciaature Attestation: I was immediately available in the department for consultation. This documentation has been reviewed and I agree with assessment and plan. Supervised by Otis Zaman DO
[2020-08-22 18:10] LABS: Add Manual Diff / Slide Review NO; Basophils Absolute Auto 100 /uL (0-100); Basophils Percent Auto 0.9 % (0-2); Eosinophils Absolute Auto 100 /uL (0-450); Hematocrit 38.4 % (36-46); Lymphocytes Absolute Auto 2900 /uL (1100-4500); Lymphocytes Percent Auto 26.6 % (25-40); Mean Corpuscular HGB Conc 33.7 % (30-36); Mean Corpuscular Hemoglobin 28.3 PG (26-34); Mean Corpuscular Volume 84.1 fL (80-100); Monocytes Absolute Auto 500 /uL (0-900); Monocytes Percent Auto 4.6 % (3-14); Neutrophils Absolute Auto 7400 /uL (1500-7000); Neutrophils Percent Auto 66.9 % (50-75); Platelet Count 278 X10^3/uL (150-400); Red Blood Cell Count 4.57 X10^6/uL (4.0-5.2); Red Cell Distribution Width 13.3 % (11.6-14.8); White Blood Cell Count 11.1 X10^3/uL (4.5-11.0)
[2020-08-22] MEDS: SODIUM CHLORIDE 0.9% 1,000 ML 1000 ML IV (18:10)
[2020-08-22 18:22] LABS: Alanine Aminotransferase 15 IU/L (<35); Albumin 4.6 g/dL (3.5-5.0); Albumin Globulin Ratio 1.3 (1.0-2.8); Alkaline Phosphatase 58 U/L (38-126); Aspartate Aminotransferase 29 IU/L (14-36); Blood Urea Nitrogen 13 mg/dL (7-17); Calcium 8.9 mg/dL (8.4-10.2); Carbon Dioxide 29 mmol/L (22-32); Chloride 101 mmol/L (98-107); Estimated Glomerular Filt Rate > 60.0 mL/min (>60); Globulin 3.5 g/dL (1.7-4.1); Glucose 146 mg/dL (70-100); Lipase 46 U/L (23-300); Potassium 4.1 mmol/L (3.4-5.1); Sodium 139 mmol/L (137-145); Total Protein 8.1 g/dL (6.3-8.2)
[2020-08-22 18:33] LABS: HEMOLYSIS 79 (0-50)
[2020-08-22 19:36] VITALS: PULSE 91; RESP 18; O2SAT 99
[2020-08-22 19:37] LABS: Urine Comments <1ml Submitted Urine
[2020-08-22 20:29] VITALS: BP 140/82; PULSE 80; RESP 18; O2SAT 98
== END 2020-08-22 20:48 | disposition home or self-care (01) ==
PROVIDERS: Emergency Provider Nurse Practitioner; PCP Family Medicine
DX: M94.0 Chondrocostal junction syndrome [Tietze] (principal)
CPT/HCPCS: 36415; 71101; 76705; 80053; 81003; 81015; 81025; 83690; 85025; 96360; 99284

== ENCOUNTER → 2021-07-18 08:05 | Outpatient (CLI) | payer OTHER, MEDICAID, SELFPAY ==
[2021-07-20 17:52] LABS: Ionized Calcium 4.4 mg/dL (4.5-5.6)
== END ==
PROVIDERS: PCP Family Medicine; Referring Provider Family Medicine; Visit Provider Family Medicine
DX: E83.51 Hypocalcemia (principal); E05.00 Thyrotoxicosis with diffuse goiter without thyrotoxic crisis or storm; E03.9 Hypothyroidism, unspecified
CPT/HCPCS: 36415; 82330; 84443

== ENCOUNTER → 2022-02-13 08:27 | Outpatient (CLI) | payer OTHER, MEDICAID, SELFPAY ==
[2022-02-13 09:50] LABS: Add Manual Diff / Slide Review NO; Basophils Absolute Auto 100 /uL (0-100); Basophils Percent Auto 1.8 % (0-2); Eosinophils Absolute Auto 100 /uL (0-450); Eosinophils Percent Auto 1.5 % (2-4); Hematocrit 33.9 % (36-46); Hemoglobin 10.9 g/dL (12.0-16.0); Lymphocytes Absolute Auto 1800 /uL (1100-4500); Lymphocytes Percent Auto 26.5 % (25-40); Mean Corpuscular HGB Conc 32.1 % (30-36); Mean Corpuscular Hemoglobin 25.4 PG (26-34); Mean Corpuscular Volume 78.9 fL (80-100); Monocytes Absolute Auto 400 /uL (0-900); Monocytes Percent Auto 5.7 % (3-14); Neutrophils Absolute Auto 4300 /uL (1500-7000); Neutrophils Percent Auto 64.5 % (50-75); Platelet Count 268 X10^3/uL (150-400); Red Cell Distribution Width 14.5 % (11.6-14.8); White Blood Cell Count 6.6 X10^3/uL (4.5-11.0)
[2022-02-13 10:17] LABS: Alanine Aminotransferase 18 IU/L (<35); Albumin 4.3 g/dL (3.5-5.0); Albumin Globulin Ratio 1.4 (1.0-2.8); Alkaline Phosphatase 63 U/L (38-126); Aspartate Aminotransferase 32 IU/L (14-36); BUN Creatinine Ratio 20.9 (6-22); Bilirubin Total 0.5 mg/dL (0.2-1.3); Blood Urea Nitrogen 14 mg/dL (7-17); Calcium 8.6 mg/dL (8.4-10.2); Carbon Dioxide 27 mmol/L (22-32); Chloride 104 mmol/L (98-107); Cholesterol 196 mg/dL (140-199); Estimated Glomerular Filt Rate > 60.0 mL/min (>60); Globulin 3.1 g/dL (1.7-4.1); Glucose 93 mg/dL (70-100); HDL Cholesterol 62 mg/dL (40-60); HEMOLYSIS < 15 (0-50); LDL Cholesterol Calculated 119 mg/dL (<100); Potassium 3.6 mmol/L (3.4-5.1); Sodium 140 mmol/L (137-145); Total Protein 7.4 g/dL (6.3-8.2); Triglycerides 76 mg/dL (35-150)
[2022-02-13 10:50] LABS: TSH w/ Reflex to FT4 1.49 uIU/mL (0.47-4.68)
[2022-02-14 07:17] LABS: Ionized Calcium 4.7 mg/dL (4.5-5.6)
== END ==
PROVIDERS: PCP Family Medicine; Referring Provider Family Medicine; Visit Provider Family Medicine
DX: E03.9 Hypothyroidism, unspecified (principal); E05.00 Thyrotoxicosis with diffuse goiter without thyrotoxic crisis or storm; E66.3 Overweight; E83.51 Hypocalcemia
CPT/HCPCS: 36415; 80053; 80061; 82330; 84443; 85025

== ENCOUNTER → 2022-05-11 10:15 | Outpatient (CLI) | payer OTHER, MEDICAID, SELFPAY | PROVIDERS: PCP Family Medicine; Visit Provider Family Medicine | DX: N39.0 Urinary tract infection, site not specified (principal); D64.9 Anemia, unspecified; Z13.220 Encounter for screening for lipoid disorders | CPT/HCPCS: 81002; 87086 ==

== ENCOUNTER → 2022-05-12 08:00 | Outpatient (CLI) | payer OTHER, MEDICAID, SELFPAY ==
[2022-05-12 09:17] LABS: Add Manual Diff / Slide Review NO; Basophils Absolute Auto 100 /uL (0-100); Basophils Percent Auto 0.8 % (0-2); Eosinophils Absolute Auto 100 /uL (0-450); Eosinophils Percent Auto 0.9 % (2-4); Hematocrit 37.1 % (36-46); Hemoglobin 12.2 g/dL (12.0-16.0); Lymphocytes Absolute Auto 900 /uL (1100-4500); Lymphocytes Percent Auto 10.4 % (25-40); Mean Corpuscular HGB Conc 32.9 % (30-36); Mean Corpuscular Hemoglobin 26.4 PG (26-34); Mean Corpuscular Volume 80.4 fL (80-100); Monocytes Absolute Auto 500 /uL (0-900); Monocytes Percent Auto 5.7 % (3-14); Neutrophils Absolute Auto 7200 /uL (1500-7000); Neutrophils Percent Auto 82.2 % (50-75); Platelet Count 241 X10^3/uL (150-400); Red Blood Cell Count 4.62 X10^6/uL (4.0-5.2); Red Cell Distribution Width 15.7 % (11.6-14.8); White Blood Cell Count 8.8 X10^3/uL (4.5-11.0)
[2022-05-12 09:50] LABS: Alanine Aminotransferase 9 IU/L (<35); Albumin 4.6 g/dL (3.5-5.0); Albumin Globulin Ratio 1.5 (1.0-2.8); Alkaline Phosphatase 65 U/L (38-126); Aspartate Aminotransferase 19 IU/L (14-36); BUN Creatinine Ratio 15.9 (6-22); Blood Urea Nitrogen 11 mg/dL (7-17); Calcium 8.8 mg/dL (8.4-10.2); Carbon Dioxide 29 mmol/L (22-32); Chloride 100 mmol/L (98-107); Cholesterol 177 mg/dL (140-199); Estimated Glomerular Filt Rate > 60 mL/min (>60); Glucose 87 mg/dL (70-100); HDL Cholesterol 54 mg/dL (40-60); HEMOLYSIS < 15 (0-50); LDL Cholesterol Calculated 98 mg/dL (<100); Potassium 4.6 mmol/L (3.4-5.1); Sodium 138 mmol/L (137-145); Total Protein 7.6 g/dL (6.3-8.2); Triglycerides 125 mg/dL (35-150)
[2022-05-12 09:53] LABS: Free T3, Triiodothyronine Free 2.82 pg/mL (2.77-5.27); Free T4, Direct Thyroxine 1.12 ng/dL (0.78-2.19)
[2022-05-12 10:06] LABS: Thyroid Stimulating Hormone 2.03 uIU/mL (0.47-4.68)
== END ==
PROVIDERS: PCP Family Medicine; Referring Provider Family Medicine; Visit Provider Family Medicine
DX: D64.9 Anemia, unspecified (principal); Z13.220 Encounter for screening for lipoid disorders; E03.9 Hypothyroidism, unspecified
CPT/HCPCS: 36415; 80053; 80061; 84439; 84443; 84481; 85025

== ENCOUNTER → 2022-05-30 12:32 | Outpatient (CLI) | payer OTHER, MEDICAID, SELFPAY | PROVIDERS: PCP Family Medicine; Visit Provider Physician Assistant | DX: N34.3 Urethral syndrome, unspecified (principal) | CPT/HCPCS: 81002; 87086 ==

== ENCOUNTER → 2022-06-20 08:43 | Outpatient (CLI) | payer OTHER, MEDICAID, SELFPAY ==
[2022-06-20 10:03] LABS: Add Manual Diff / Slide Review NO; Basophils Absolute Auto 100 /uL (0-100); Basophils Percent Auto 1.8 % (0-2); Eosinophils Absolute Auto 100 /uL (0-450); Eosinophils Percent Auto 1.3 % (2-4); Hematocrit 35.8 % (36-46); Hemoglobin 11.7 g/dL (12.0-16.0); Lymphocytes Absolute Auto 2000 /uL (1100-4500); Lymphocytes Percent Auto 25.8 % (25-40); Mean Corpuscular HGB Conc 32.7 % (30-36); Mean Corpuscular Hemoglobin 26.6 PG (26-34); Mean Corpuscular Volume 81.3 fL (80-100); Monocytes Absolute Auto 500 /uL (0-900); Neutrophils Absolute Auto 5100 /uL (1500-7000); Neutrophils Percent Auto 65.1 % (50-75); Platelet Count 270 X10^3/uL (150-400); Red Blood Cell Count 4.41 X10^6/uL (4.0-5.2); Red Cell Distribution Width 14.4 % (11.6-14.8); White Blood Cell Count 7.8 X10^3/uL (4.5-11.0)
[2022-06-20 11:17] LABS: Appearance Urine UA CLEAR; Bilirubin Urine UA NEGATIVE (NEGATIVE); Color Urine UA YELLOW; Glucose Urine UA NEGATIVE (Negative); Ketones Urine UA NEGATIVE (NEGATIVE); Leukocyte Esterase Urine UA 1+ (NEGATIVE); Nitrite Urine UA NEGATIVE (Negative); Occult Blood Urine UA 3+ (Negative); Protein Urine UA NEGATIVE (Negative); Specific Gravity Urine UA <=1.005 (1.000-1.035); Urobilinogen Urine UA 0.2 E.U./dL (0.2)
[2022-06-20 11:20] LABS: pH Urine UA 7.5 (4.5-8.0)
[2022-06-20 12:27] LABS: Bacteria Urine Many (>30); Culture Indicated Urine Cult Not Indicated; RBC Urine 1-5/HPF (0-5/HPF); Squamous Epithelial Cell Urine 5-10 /HPF (0-5/HPF); WBC Urine 1-5/HPF (0-5/HPF)
== END ==
PROVIDERS: Family Medicine; PCP Family Medicine; Referring Provider Family Medicine; Visit Provider Family Medicine
DX: D64.9 Anemia, unspecified (principal); R31.9 Hematuria, unspecified
CPT/HCPCS: 36415; 81001; 85025

== ENCOUNTER → 2022-07-11 09:21 | Outpatient (CLI) | payer OTHER, MEDICAID, SELFPAY ==
[2022-07-11 11:06] LABS: Appearance Urine UA CLEAR; Bilirubin Urine UA NEGATIVE (NEGATIVE); Color Urine UA YELLOW; Glucose Urine UA NEGATIVE (Negative); Ketones Urine UA NEGATIVE (NEGATIVE); Leukocyte Esterase Urine UA TRACE (NEGATIVE); Nitrite Urine UA NEGATIVE (Negative); Occult Blood Urine UA 3+ (Negative); Protein Urine UA NEGATIVE (Negative); Specific Gravity Urine UA <=1.005 (1.000-1.035); Urobilinogen Urine UA 0.2 E.U./dL (0.2)
[2022-07-11 11:13] LABS: Bacteria Urine Occasional (0-1); Culture Indicated Urine Specimen Cultured; RBC Urine 1-5/HPF (0-5/HPF); WBC Urine 0-1/HPF (0-5/HPF)
== END ==
PROVIDERS: PCP Family Medicine; Referring Provider Family Medicine; Visit Provider Family Medicine
DX: R30.0 Dysuria (principal)
CPT/HCPCS: 81001; 87086

== ENCOUNTER 2022-07-12 14:21 | Emergency (ER) | payer OTHER, MEDICAID, SELFPAY ==
[2022-07-12 14:32] VITALS: BP 138/87; PULSE 75; RESP 16; TEMP 36.3; O2SAT 99; BMI 27.4
== END 2022-07-12 18:47 | disposition left against medical advice (07) ==
PROVIDERS: Emergency Provider Emergency Medicine; PCP Family Medicine
DX: R11.10 Vomiting, unspecified (principal)
CPT/HCPCS: 99281

== ENCOUNTER 2022-07-16 12:29 | Emergency (ER) | payer OTHER, MEDICAID, SELFPAY ==
[2022-07-16] VITALS (8 sets, daily range): BP systolic 152–161; BP diastolic 96–98; PULSE 60–77; RESP 12–25; TEMP 36.9–37.1; O2SAT 99–100; BMI 28.3
[2022-07-16 14:24] LABS: Bacteria Urine None Seen; Culture Indicated Urine Cult Not Indicated; RBC Urine 1-5/HPF (0-5/HPF); Squamous Epithelial Cell Urine 1-5 /HPF (0-5/HPF); Transitional Epi Cells Urine 0-1/HPF (0-5/HPF); WBC Urine 0-1/HPF (0-5/HPF)
[2022-07-16 16:12] LABS: Add Manual Diff / Slide Review NO; Basophils Absolute Auto 100 /uL (0-100); Basophils Percent Auto 0.8 % (0-2); Eosinophils Absolute Auto 100 /uL (0-450); Eosinophils Percent Auto 0.5 % (2-4); Hematocrit 37.3 % (36-46); Hemoglobin 12.4 g/dL (12.0-16.0); Lymphocytes Absolute Auto 1700 /uL (1100-4500); Lymphocytes Percent Auto 12.9 % (25-40); Mean Corpuscular HGB Conc 33.2 % (30-36); Mean Corpuscular Hemoglobin 26.9 PG (26-34); Mean Corpuscular Volume 81.1 fL (80-100); Monocytes Absolute Auto 800 /uL (0-900); Monocytes Percent Auto 5.9 % (3-14); Neutrophils Absolute Auto 10800 /uL (1500-7000); Neutrophils Percent Auto 79.9 % (50-75); Platelet Count 273 X10^3/uL (150-400); Red Cell Distribution Width 14.4 % (11.6-14.8); White Blood Cell Count 13.5 X10^3/uL (4.5-11.0)
[2022-07-16 16:16] LABS: INR 0.9 (0.9-1.3); Prothrombin Time 10.8 SECONDS (10.1-12.7)
[2022-07-16 16:19] LABS: PTT Partial Thromboplastin Tim 36 SECONDS (26-36)
[2022-07-16 16:21] LABS: Alanine Aminotransferase 10 IU/L (<35); Albumin 4.5 g/dL (3.5-5.0); Albumin Globulin Ratio 1.3 (1.0-2.8); Alkaline Phosphatase 73 U/L (38-126); Aspartate Aminotransferase 20 IU/L (14-36); BUN Creatinine Ratio 16.7 (6-22); Bilirubin Total 0.5 mg/dL (0.2-1.3); Blood Urea Nitrogen 13 mg/dL (7-17); Calcium 8.1 mg/dL (8.4-10.2); Carbon Dioxide 30 mmol/L (22-32); Chloride 102 mmol/L (98-107); Estimated Glomerular Filt Rate > 60 mL/min (>60); Globulin 3.6 g/dL (1.7-4.1); Glucose 92 mg/dL (70-100); HEMOLYSIS < 15 (0-50); Lipase 58 U/L (23-300); Potassium 3.9 mmol/L (3.4-5.1); Sodium 140 mmol/L (137-145); Total Protein 8.1 g/dL (6.3-8.2)
--- NOTE | 2022-07-16 18:03 | DI.CT.S_ITS ---
PROCEDURE: CT KIDNEY URETER BLADDER (KUB) INDICATIONS: Right sided pain r/o kidney stone TECHNIQUE: Axial sections were acquired from the lung bases to the pubic symphysis. Coronal and sagittal reformats were performed. For radiation dose reduction, the following was used: automated exposure control, adjustment of mA and/or kV according to patient size. COMPARISON: None. FINDINGS: Image quality: Excellent. Lung bases: Unremarkable. Heart: No significant findings. URINARY: There is mild right renal enlargement. Left kidney is normal in size. Nonobstructing 3 mm calcification within the inferior pole right kidney. No left nephrolithiasis. No left hydronephrosis nor left ureteral dilatation. There is moderate right hydronephrosis and mild diffuse right ureteral dilatation. There is a right ureterovesical junction calculus measuring 8 mm diameter. Fat stranding surrounds the urinary bladder. ABDOMEN: Liver: Unremarkable. Gallbladder: Is within normal limits Biliary ducts: Unremarkable. Pancreas: Unremarkable. Spleen: Unremarkable. Adrenal Glands: Unremarkable. Stomach and Bowel: Small hiatal hernia. Stomach, small bowel loops, and colon are unremarkable. Appendix is normal. Peritoneum: No abnormal intraperitoneal fluid. No free air. Ventral Wall: No hernia. Abdominal Nodes: No enlarged retroperitoneal or mesenteric lymph nodes. Vessels: Aorta and inferior vena cava are normal in size. PELVIS: Pelvic Organs: Unremarkable. Pelvic Nodes: Unremarkable. Miscellaneous: No inguinal hernias are seen. Bones: Unremarkable. IMPRESSION: 1. Right ureterovesical junction calculus associated with right hydronephrosis. 2. Normal appendix. 3. Nonobstructing right renal calculus. 4. Small hiatal hernia. Dictated by: Demetrio Hayes M.D. on 07/16/2022 at 18:50 Approved by: Demetrio Hayes M.D. on 07/16/2022 at 18:52
[2022-07-16] MEDS: ONDANSETRON 4 MG/2 ML INJ IV (18:22)
[2022-07-16] MEDS: KETOROLAC 30 MG/ML VIAL IV (18:22)
--- NOTE | 2022-07-16 19:43 | ED_ITS ---
HPI - Female Genitourinary <Alessio Marte PA-C - Last Filed: 07/16/22 20:39> General Chief complaint: Urogenital-Female Stated complaint: UTI Time Seen by Provider: 07/16/22 16:27 Source: patient Mode of arrival: Ambulatory History of Present Illness HPI Narrative: Patient is 37-year-old female who presents to the emergency room today with complaint of right-sided pain started about 2 days ago PA patient actually had this pain for over a week now went to see her primary care provider on Sunday who had her report to the hospital to have urine drawn. At that point time he diagnosed her with urinary tract infection. The patient has been taking antibiotics since that time. Antibiotics worked to help with the pain for about 2 days but then the pain returned 2 days ago and is worse. Describes the pain as a right-sided pain that is in the right lower quadrant and radiates to the back. Pain is worse with worse with standing and is only relieved with certain positioning. Related Data Home Medications Medication Instructions Recorded Confirmed pkrzhzajio-[id number]-[id number] 0 tab PO Q6HP PRN migrainge 11/08/18 05/30/22 50 mg-325 mg-40 mg tablet Previous Rx's Medication Instructions Recorded fluticasone propionate 110 1 puff inhalation BID #12 grams 08/31/21 mcg/actuation HFA aerosol inhaler albuterol sulfate 90 mcg/actuation 2 inh inhalation Q4HP PRN Wheezing 03/10/22 aerosol inhaler (Ventolin HFA) #18 grams calcitriol 0.5 mcg capsule 0.5 mcg PO BID #180 caps 03/10/22 cetirizine 10 mg tablet See Rx Instructions .Route 03/10/22 .COMPLEX #90 tabs escitalopram oxalate 10 mg tablet See Rx Instructions .Route 03/10/22 .COMPLEX #90 tabs lamotrigine 200 mg tablet See Rx Instructions .Route 03/10/22 .COMPLEX #90 tabs levothyroxine 150 mcg tablet 150 mcg PO DAILY #90 tabs 03/10/22 montelukast 10 mg tablet See Rx Instructions .Route 03/10/22 .COMPLEX #30 tabs fluconazole 200 mg tablet 200 mg PO .COMPLEX #2 tabs 05/11/22 levothyroxine 137 mcg tablet 137 mcg PO DAILY #90 tabs 05/11/22 nitrofurantoin macrocrystal 100 mg 100 mg PO BID #10 caps 05/11/22 capsule nitrofurantoin macrocrystal 100 mg 100 mg PO BID #14 caps 07/11/22 capsule ondansetron HCl 4 mg tablet 4 mg PO BID-TID PRN nausea and 07/16/22 vomiting #20 tabs oxycodone-acetaminophen 5 mg-325 1 tab PO Q8H PRN pain #20 tabs 07/16/22 mg tablet (Percocet) tamsulosin 0.4 mg capsule (Flomax) 0.4 mg PO DAILY #30 caps 07/16/22 Allergies Allergy/AdvReac Type Severity Reaction Status Date / Time Penicillins [PENICILLINS] Allergy Mild HIVES Verified 07/12/22 14:35 adhesive [ADHESIVE] AdvReac Mild sensitive Verified 07/12/22 14:35 to tape, rash Review of Systems <Alessio Marte PA-C - Last Filed: 07/16/22 20:39> Review of Systems Narrative: R.O.S.: General: No fever, chills or fatigue. Cardiovascular: No chest pain or palpitations Respiratory: No S.O.B. HEENT: No congestion, ear pain, rhinorrhea, sore throat or tinnitus Gastrointestinal: Right-sided abdominal pain Skin: No rash or associated abnormalities Musculoskeletal: No pain in muscles or joints, no limitation of range of motion, no paresthesia or numbness. ?? Neurological: Awake, alert and in not apparent distress. No Headaches, changes in vision or other related neurological concerns. 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 General: normal appearance, well developed, well nourished, alert, and awake. Not in acute distress. ? Head: Normocephalic, no lesions. Chest: Lungs CTAB, no rales, rhonchi or wheezes. ?? Heart: RRR, no murmurs, rubs or gallops. Eyes: PERRLA, EOM's full, conjunctivae clear. ? Neuro: Physiological, no localizing findings, CN3-12 intact. ?? Extremities: Warm, well perfused, FROM, no deformities, no edema. ?? Skin: Normal, no rashes, no lesions noted. ?? PSYCHIATRIC: The mood is good, no blunted affect. Speech is clear. Thought process is linear, thought content is appropriate. The voice is without significant inflection. Gastrointestinal: Pos CVA tenderness to Right side; Soft; Tender to palpation of right lower quadrant; ND; Pos BS with Neg. rebound tenderness. No scars or major deformities noted on Visual Inspection. Initial Vital Signs Initial Vital Signs: Vital Signs Temperature 98.7 F 07/16/22 13:13 Pulse Rate 77 07/16/22 13:13 Respiratory Rate 16 07/16/22 13:13 Blood Pressure 161/98 H 07/16/22 13:13 Pulse Oximetry 99 07/16/22 13:13 Oxygen Delivery Method 07/16/22 13:13 <Aurora Jose DO - Last Filed: 07/22/22 08:18> Initial Vital Signs Initial Vital Signs: Vital Signs Temperature 98.7 F 07/16/22 13:13 Pulse Rate 77 07/16/22 13:13 Respiratory Rate 16 07/16/22 13:13 Blood Pressure 161/98 H 07/16/22 13:13 Pulse Oximetry 99 07/16/22 13:13 Oxygen Delivery Method 07/16/22 13:13 Course <Alessio Marte PA-C - Last Filed: 07/16/22 20:39> Orders Ordered: Discontinued Medications Ketorolac Tromethamine (Ketorolac 30 Mg/Ml Vial) 30 mg IV NOW ONE Stop: 07/16/22 18:19 Last Admin: 07/16/22 18:22 Dose: 30 mg Documented By: AT Ondansetron HCl (Ondansetron 4 Mg/2 Ml Inj) 4 mg IV NOW ONE Stop: 07/16/22 18:18 Last Admin: 07/16/22 18:22 Dose: 4 mg Documented By: AT Vital Signs Vital signs: Vital Signs - 8 hr 07/16/22 13:13 07/16/22 16:01 07/16/22 16:30 Temperature 98.7 F Pulse Rate 77 60 69 Respiratory Rate 16 15 17 Blood Pressure 161/98 H Pulse Oximetry 99 100 100 Oxygen Delivery Method Room Air 07/16/22 16:31 07/16/22 16:31 07/16/22 16:47 Temperature 98.5 F Pulse Rate 62 Respiratory Rate 12 Blood Pressure 152/96 H Pulse Oximetry 100 Oxygen Delivery Method Room Air 07/16/22 17:00 07/16/22 17:30 07/16/22 18:00 Temperature Pulse Rate 69 69 70 Respiratory Rate 25 H Blood Pressure Pulse Oximetry 100 99 100 Oxygen Delivery Method <Aurora Jose, - Last Filed: 07/22/22 08:18> Orders Ordered: Discontinued Medications Ketorolac Tromethamine (Ketorolac 30 Mg/Ml Vial) 30 mg IV NOW ONE Stop: 07/16/22 18:19 Last Admin: 07/16/22 18:22 Dose: 30 mg Documented By: AT Ondansetron HCl (Ondansetron 4 Mg/2 Ml Inj) 4 mg IV NOW ONE Stop: 07/16/22 18:18 Last Admin: 07/16/22 18:22 Dose: 4 mg Documented By: AT Vital Signs Vital signs: Vital Signs - 8 hr 07/16/22 13:13 07/16/22 16:01 07/16/22 16:30 Temperature 98.7 F Pulse Rate 77 60 69 Respiratory Rate 16 15 17 Blood Pressure 161/98 H Pulse Oximetry 99 100 100 Oxygen Delivery Method Room Air 07/16/22 16:31 07/16/22 16:31 07/16/22 16:47 Temperature 98.5 F Pulse Rate 62 Respiratory Rate 12 Blood Pressure 152/96 H Pulse Oximetry 100 Oxygen Delivery Method Room Air 07/16/22 17:00 07/16/22 17:30 07/16/22 18:00 Temperature Pulse Rate 69 69 70 Respiratory Rate 25 H Blood Pressure Pulse Oximetry 100 99 100 Oxygen Delivery Method MDM - Female Genitourinary <Alessio Marte PA-C - Last Filed: 07/16/22 20:39> Lab Data Result diagrams: 07/16/22 15:55 07/16/22 15:55 Labs: Lab Results 07/16/22 07/16/22 07/16/22 Range/Units 13:42 15:55 15:55 WBC 13.5 H (4.5-11.0) X10^3/uL RBC 4.60 (4.0-5.2) X10^6/uL Hgb 12.4 (12.0-16.0) g/dL Hct 37.3 (36-46) % MCV 81.1 (80-100) fL MCH 26.9 (26-34) PG MCHC 33.2 (30-36) % RDW 14.4 (11.6-14.8) % Plt Count 273 (150-400) X10^3/uL Neut % (Auto) 79.9 H (50-75) % Lymph % (Auto) 12.9 L (25-40) % Stafford % (Auto) 5.9 (3-14) % Eos % (Auto) 0.5 L (2-4) % Baso % (Auto) 0.8 (0-2) % Neut # (Auto) 84866 H (8990-3539) /uL Lymph # (Auto) 1700 (5951-3614) /uL Stafford # (Auto) 800 (0-900) /uL Eos # (Auto) 100 (0-450) /uL Baso # (Auto) 100 (0-100) /uL PT 10.8 (10.1-12.7) SECONDS INR 0.9 (0.9-1.3) APTT 36 (26-36) SECONDS Sodium (137-145) mmol/L Potassium (3.4-5.1) mmol/L Chloride (98-107) mmol/L Carbon Dioxide (22-32) mmol/L BUN (7-17) mg/dL Creatinine (0.52-1.04) mg/dL Estimated GFR (>60) mL/min BUN/Creatinine Ratio (6-22) Glucose (70-100) mg/dL Calcium (8.4-10.2) mg/dL Total Bilirubin (0.2-1.3) mg/dL AST (14-36) IU/L ALT (<35) IU/L Alkaline Phosphatase (38-126) U/L Total Protein (6.3-8.2) g/dL Albumin (3.5-5.0) g/dL Globulin (1.7-4.1) g/dL Albumin/Globulin Ratio (1.0-2.8) Lipase (23-300) U/L Urine RBC 1-5/hpf (0-5/HPF) Urine WBC 0-1/hpf (0-5/HPF) Ur Squamous Epith Cells 1-5 /hpf (0-5/HPF) Ur Transition Epith Cell 0-1/hpf (0-5/HPF) Urine Bacteria None seen (None) Ur Culture Indicated? Cult not indicated 07/16/22 Range/Units 15:55 WBC (4.5-11.0) X10^3/uL RBC (4.0-5.2) X10^6/uL Hgb (12.0-16.0) g/dL Hct (36-46) % MCV (80-100) fL MCH (26-34) PG MCHC (30-36) % RDW (11.6-14.8) % Plt Count (150-400) X10^3/uL Neut % (Auto) (50-75) % Lymph % (Auto) (25-40) % Stafford % (Auto) (3-14) % Eos % (Auto) (2-4) % Baso % (Auto) (0-2) % Neut # (Auto) (2156-7399) /uL Lymph # (Auto) (9668-4120) /uL Stafford # (Auto) (0-900) /uL Eos # (Auto) (0-450) /uL Baso # (Auto) (0-100) /uL PT (10.1-12.7) SECONDS INR (0.9-1.3) APTT (26-36) SECONDS Sodium 140 (137-145) mmol/L Potassium 3.9 (3.4-5.1) mmol/L Chloride 102 (98-107) mmol/L Carbon Dioxide 30 (22-32) mmol/L BUN 13 (7-17) mg/dL Creatinine 0.78 (0.52-1.04) mg/dL Estimated GFR > 60 (>60) mL/min BUN/Creatinine Ratio 16.7 (6-22) Glucose 92 (70-100) mg/dL Calcium 8.1 L (8.4-10.2) mg/dL Total Bilirubin 0.5 (0.2-1.3) mg/dL AST 20 (14-36) IU/L ALT 10 (<35) IU/L Alkaline Phosphatase 73 (38-126) U/L Total Protein 8.1 (6.3-8.2) g/dL Albumin 4.5 (3.5-5.0) g/dL Globulin 3.6 (1.7-4.1) g/dL Albumin/Globulin Ratio 1.3 (1.0-2.8) Lipase 58 (23-300) U/L Urine RBC (0-5/HPF) Urine WBC (0-5/HPF) Ur Squamous Epith Cells (0-5/HPF) Ur Transition Epith Cell (0-5/HPF) Urine Bacteria (None) Ur Culture Indicated? Point of Care Testing Test Results Negative Urine Dip Bedside Urine Glucose Negative Bedside Urine Bilirubin - Negative Bedside Urine Ketone - Negative Urine Specific [place] 1.010 Bedside Urine Occult Blood +++ Bedside Urine pH 8.0 Bedside Urine Protein +++ 300 Bedside Urine Urobilinogen - Negative Bedside Urine Nitrite - Negative Bedside Urine Leukocytes - Negative Esterase Imaging Data CT KUB: Radiologist's Impression: PROCEDURE:? CT KIDNEY URETER BLADDER (KUB) ? INDICATIONS:? Right sided pain r/o kidney stone ? TECHNIQUE:? Axial sections were acquired from the lung bases to the pubic symphysis.? Coronal and sagittal reformats were performed.? For radiation dose reduction, the following was used: ?automated exposure control, adjustment of mA and/or kV according to patient size.? ? COMPARISON:? None. ? FINDINGS:? Image quality:? Excellent.? ? Lung bases:? Unremarkable.? ? Heart:? No significant findings. ? URINARY: There is mild right renal enlargement.? Left kidney is normal in size.? Nonobstructing 3 mm calcification within the inferior pole right kidney.? No left nephrolithiasis.? No left hydronephrosis nor left ureteral dilatation.? There is moderate right hyd ronephrosis and mild diffuse right ureteral dilatation.? There is a right ureterovesical junction calculus measuring 8 mm diameter.? Fat stranding surrounds the urinary bladder. ? ABDOMEN: Liver:? Unremarkable.? ? Gallbladder:? Is within normal limits? ? Biliary ducts:? Unremarkable.? ? Pancreas:? Unremarkable.? ? Spleen:? Unremarkable.? ? Adrenal Glands:? Unremarkable.? ? ? Stomach and Bowel:? Small hiatal hernia.? Stomach, small bowel loops, and colon are unremarkable.? Appendix is normal. Peritoneum:? No abnormal intraperitoneal fluid.? No free air.? ? Ventral Wall: ? No hernia.? Abdominal Nodes:? No enlarged retroperitoneal or mesenteric lymph nodes.? Vessels:? Aorta and inferior vena cava are normal in size.? ? PELVIS: Pelvic Organs:? Unremarkable.? ? Pelvic Nodes: Unremarkable. Miscellaneous: No inguinal hernias are seen. ? ? ? Bones:? Unremarkable. ? IMPRESSION:? ? 1.? Right ureterovesical junction calculus associated with right hydronephrosis. 2. Normal appendix. 3. Nonobstructing right renal calculus. 4. Small hiatal hernia. ? ? Dictated by: Demetrio Hayes M.D. on 07/16/2022 at 18:50 ? ? Approved by: Demetrio Hayes M.D. on 07/16/2022 at 18:52 MDM Narrative Medical decision making narrative: Patient is a 37-year-old female presents to the emergency room today with complaint of right-sided pain. He has been treated for the 5 days now with antibiotics for urinary tract infection. Urine was negative for infection at this time blood was negative for infection at this time. Your ultrasound reveals 3 mm right-sided kidney stone with hydronephrosis. Flomax Percocet and Zofran was ordered for patient. This provider discussed kidney stones and related concerns with the patient to include worsening of stone fever intractable vomiting intractable pain in other genitourinary concerns. Patient also referred to Urology given Urology contact information. Patient advised to return to emergency room should any emergent concerns arise. Patient advised to follow-up with her PCP should any non emergent concerns arise. <Auorra Jose, - Last Filed: 07/22/22 08:18> Lab Data Labs: Lab Results 07/16/22 07/16/22 07/16/22 Range/Units 13:42 15:55 15:55 WBC 13.5 H (4.5-11.0) X10^3/uL RBC 4.60 (4.0-5.2) X10^6/uL Hgb 12.4 (12.0-16.0) g/dL Hct 37.3 (36-46) % MCV 81.1 (80-100) fL MCH 26.9 (26-34) PG MCHC 33.2 (30-36) % RDW 14.4 (11.6-14.8) % Plt Count 273 (150-400) X10^3/uL Neut % (Auto) 79.9 H (50-75) % Lymph % (Auto) 12.9 L (25-40) % Stafford % (Auto) 5.9 (3-14) % Eos % (Auto) 0.5 L (2-4) % Baso % (Auto) 0.8 (0-2) % Neut # (Auto) 27550 H (4331-2874) /uL Lymph # (Auto) 1700 (2685-4230) /uL Stafford # (Auto) 800 (0-900) /uL Eos # (Auto) 100 (0-450) /uL Baso # (Auto) 100 (0-100) /uL PT 10.8 (10.1-12.7) SECONDS INR 0.9 (0.9-1.3) APTT 36 (26-36) SECONDS Sodium (137-145) mmol/L Potassium (3.4-5.1) mmol/L Chloride (98-107) mmol/L Carbon Dioxide (22-32) mmol/L BUN (7-17) mg/dL Creatinine (0.52-1.04) mg/dL Estimated GFR (>60) mL/min BUN/Creatinine Ratio (6-22) Glucose (70-100) mg/dL Calcium (8.4-10.2) mg/dL Total Bilirubin (0.2-1.3) mg/dL AST (14-36) IU/L ALT (<35) IU/L Alkaline Phosphatase (38-126) U/L Total Protein (6.3-8.2) g/dL Albumin (3.5-5.0) g/dL Globulin (1.7-4.1) g/dL Albumin/Globulin Ratio (1.0-2.8) Lipase (23-300) U/L Urine RBC 1-5/hpf (0-5/HPF) Urine WBC 0-1/hpf (0-5/HPF) Ur Squamous Epith Cells 1-5 /hpf (0-5/HPF) Ur Transition Epith Cell 0-1/hpf (0-5/HPF) Urine Bacteria None seen (None) Ur Culture Indicated? Cult not indicated 07/16/22 Range/Units 15:55 WBC (4.5-11.0) X10^3/uL RBC (4.0-5.2) X10^6/uL Hgb (12.0-16.0) g/dL Hct (36-46) % MCV (80-100) fL MCH (26-34) PG MCHC (30-36) % RDW (11.6-14.8) % Plt Count (150-400) X10^3/uL Neut % (Auto) (50-75) % Lymph % (Auto) (25-40) % Stafford % (Auto) (3-14) % Eos % (Auto) (2-4) % Baso % (Auto) (0-2) % Neut # (Auto) (0993-5377) /uL Lymph # (Auto) (1783-4945) /uL Stafford # (Auto) (0-900) /uL Eos # (Auto) (0-450) /uL Baso # (Auto) (0-100) /uL PT (10.1-12.7) SECONDS INR (0.9-1.3) APTT (26-36) SECONDS Sodium 140 (137-145) mmol/L Potassium 3.9 (3.4-5.1) mmol/L Chloride 102 (98-107) mmol/L Carbon Dioxide 30 (22-32) mmol/L BUN 13 (7-17) mg/dL Creatinine 0.78 (0.52-1.04) mg/dL Estimated GFR > 60 (>60) mL/min BUN/Creatinine Ratio 16.7 (6-22) Glucose 92 (70-100) mg/dL Calcium 8.1 L (8.4-10.2) mg/dL Total Bilirubin 0.5 (0.2-1.3) mg/dL AST 20 (14-36) IU/L ALT 10 (<35) IU/L Alkaline Phosphatase 73 (38-126) U/L Total Protein 8.1 (6.3-8.2) g/dL Albumin 4.5 (3.5-5.0) g/dL Globulin 3.6 (1.7-4.1) g/dL Albumin/Globulin Ratio 1.3 (1.0-2.8) Lipase 58 (23-300) U/L Urine RBC (0-5/HPF) Urine WBC (0-5/HPF) Ur Squamous Epith Cells (0-5/HPF) Ur Transition Epith Cell (0-5/HPF) Urine Bacteria (None) Ur Culture Indicated? Point of Care Testing Test Results Negative Urine Dip Bedside Urine Glucose Negative Bedside Urine Bilirubin - Negative Bedside Urine Ketone - Negative Urine Specific [place] 1.010 Bedside Urine Occult Blood +++ Bedside Urine pH 8.0 Bedside Urine Protein +++ 300 Bedside Urine Urobilinogen - Negative Bedside Urine Nitrite - Negative Bedside Urine Leukocytes - Negative Esterase Discharge Plan Departure Patient Disposition: Home Clinical Impression: Kidney stone on right side Instructions: DI for Kidney Stones Activity Restrictions/Additional Instructions: *You have been diagnosed with kidney stone. I have ordered the medicine and Flomax to help with you possibly passing the stone. Have also ordered Percocet to help with times when you have extensive pain. I have also ordered Zofran to with periods of nausea. I suggest you continue to take ibuprofen or naproxen to help with minor pain. I suggest you return to the emergency room should any emergent concerns arise which include intractable vomiting intractable pain increase in temperature over 101? that should not able to relieve with Tylenol. I Also suggested follow-up with urology with Neurology with any acute or urgent urology related concerns. You should ask for Dr. Goodman and their phone number is [phone]. [ ] *What to do: *Please continue to take your regular medications as directed. [x] New medication prescriptions sent to your pharmacy: [ ] [ ] New medication written as a paper prescription [ ] No new medications given *Please follow up with your primary care provider in 2-3 days, call for an appointment. Let them know you were seen in the Emergency Department and that we ask that you be seen in follow up. We will electronically transmit a record of today's note if your PCP is in our system *If you do not have a primary care provider please contact the [facility] Resource line at [phone]. They will ask some questions about your medical history and help get you set up with a doctor in the community. *Return to Emergency Department if you should have any new, worsening or concerning symptoms, such as [fever greater than 101 F, shaking chills, worsening pain, persistent vomiting or other bothersome symptoms] Prescriptions: New tamsulosin [Flomax] 0.4 mg capsule 0.4 mg PO DAILY Qty: 30 0RF oxycodone-acetaminophen [Percocet] 5-325 mg tablet 1 tab PO Q8H PRN (Reason: pain) Qty: 20 0RF ondansetron HCl 4 mg tablet 4 mg PO BID-TID PRN (Reason: nausea and vomiting) Qty: 20 0RF No Action nitrofurantoin macrocrystal 100 mg capsule 100 mg PO BID Qty: 14 0RF Rx Instructions: must administer with a meal/food fluticasone propionate 110 mcg/actuation HFA aerosol inhaler 1 puff inhalation BID Qty: 12 11RF albuterol sulfate [Ventolin HFA] 90 mcg/actuation HFA aerosol inhaler 2 inh Inhalation Q4HP PRN (Reason: Wheezing) Qty: 18 6RF cetirizine 10 mg tablet See Rx Instructions .ROUTE .COMPLEX Qty: 90 3RF Dose Instruction: Take 1 tablet by mouth daily; As Needed for allergies Rx Instructions: Take 1 tablet by mouth daily; As Needed for allergies escitalopram oxalate 10 mg tablet See Rx Instructions .ROUTE .COMPLEX Qty: 90 2RF Dose Instruction: TAKE ONE TABLET BY MOUTH ONE TIME DAILY Rx Instructions: TAKE ONE TABLET BY MOUTH ONE TIME DAILY lamotrigine 200 mg tablet See Rx Instructions .ROUTE .COMPLEX Qty: 90 1RF Dose Instruction: take 1 tablet by mouth once daily Rx Instructions: take 1 tablet by mouth once daily levothyroxine 150 mcg tablet 150 mcg PO DAILY Qty: 90 3RF Hold Instructions: dose change Rx Instructions: APPOINTMENT DUE FOR FURTHER REFILLS. THANK YOU! montelukast 10 mg tablet See Rx Instructions .ROUTE .COMPLEX Qty: 30 5RF Dose Instruction: take 1 tablet by mouth at bedtime Rx Instructions: take 1 tablet by mouth at bedtime calcitriol 0.5 mcg capsule 0.5 mcg PO BID Qty: 180 11RF nitrofurantoin macrocrystal 100 mg capsule 100 mg PO BID Qty: 10 0RF Rx Instructions: must administer with a meal/food fluconazole 200 mg tablet 200 mg PO .COMPLEX Qty: 2 0RF Rx Instructions: take 1 tab on day 1, take another on day 3. 200 mg orally; levothyroxine 137 mcg tablet 137 mcg PO DAILY Qty: 90 0RF bbnvfhdgda-rgtiomladgjxd-cdco 1 EACH tablet 0 tab PO Q6HP PRN (Reason: migrainge) Referrals: Gregory Goodman MD [Physician] - Jm Mcleod DO [Primary Care Provider] - Visit Report Forms: Patient Portal/API <Aurora Jose DO - Last Filed: 07/22/22 08:18> Cosign ED Attending Patriciaature Attestation: I was immediately available in the department for consultation. Documentation has been reviewed.
== END 2022-07-16 20:50 | disposition home or self-care (01) ==
PROVIDERS: Emergency Medicine; Emergency Provider Physician Assistant; PCP Family Medicine
DX: N20.0 Calculus of kidney (principal)
CPT/HCPCS: 36415; 74176; 80053; 81003; 81015; 81025; 83690; 85025; 85610; 85730; 93005; 96374; 96375; 99284; J1885; J2405

== ENCOUNTER → 2023-01-03 12:35 | Outpatient (CLI) | payer OTHER, MEDICAID, SELFPAY ==
[2023-01-03 14:50] LABS: TSH w/ Reflex to FT4 0.13 uIU/mL (0.47-4.68)
[2023-01-03 15:40] LABS: Free T4, Direct Thyroxine 1.23 ng/dL (0.78-2.19)
== END ==
PROVIDERS: PCP Family Medicine; Referring Provider Family Medicine; Visit Provider Family Medicine
DX: E03.9 Hypothyroidism, unspecified (principal)
CPT/HCPCS: 36415; 84439; 84443

== ENCOUNTER → 2023-02-19 08:26 | Outpatient (CLI) | payer OTHER, MEDICAID, SELFPAY ==
[2023-02-19 10:01] LABS: Free T3, Triiodothyronine Free 3.14 pg/mL (2.77-5.27); Free T4, Direct Thyroxine 1.03 ng/dL (0.78-2.19)
[2023-02-19 10:15] LABS: Thyroid Stimulating Hormone 0.894 uIU/mL (0.47-4.68)
== END ==
PROVIDERS: PCP Family Medicine; Referring Provider Family Medicine; Visit Provider Family Medicine
DX: E03.9 Hypothyroidism, unspecified (principal)
CPT/HCPCS: 36415; 84439; 84443; 84481

== ENCOUNTER → 2023-07-26 08:49 | Outpatient (CLI) | payer OTHER, MEDICAID, SELFPAY ==
[2023-07-26 11:18] LABS: Thyroid Stimulating Hormone 2.83 uIU/mL (0.47-4.68)
== END ==
PROVIDERS: PCP Family Medicine; Referring Provider Family Medicine; Visit Provider Family Medicine
DX: E03.9 Hypothyroidism, unspecified (principal)
CPT/HCPCS: 36415; 84439; 84443

== ENCOUNTER → 2023-11-29 07:45 | Outpatient (CLI) | payer OTHER, MEDICAID, SELFPAY ==
[2023-11-29 08:27] LABS: Add Manual Diff / Slide Review NO; Basophils Absolute Auto 100 /uL (0-100); Basophils Percent Auto 1.1 % (0-2); Eosinophils Absolute Auto 100 /uL (0-450); Eosinophils Percent Auto 0.9 % (2-4); Hematocrit 33.5 % (36-46); Hemoglobin 10.6 g/dL (12.0-16.0); Lymphocytes Absolute Auto 2100 /uL (1100-4500); Lymphocytes Percent Auto 33.4 % (25-40); Mean Corpuscular HGB Conc 31.7 % (30-36); Mean Corpuscular Hemoglobin 23.8 PG (26-34); Monocytes Absolute Auto 400 /uL (0-900); Monocytes Percent Auto 6.7 % (3-14); Neutrophils Absolute Auto 3700 /uL (1500-7000); Neutrophils Percent Auto 57.9 % (50-75); Platelet Count 273 X10^3/uL (150-400); Red Blood Cell Count 4.47 X10^6/uL (4.0-5.2); Red Cell Distribution Width 15.6 % (11.6-14.8); White Blood Cell Count 6.4 X10^3/uL (4.5-11.0)
[2023-11-29 10:27] LABS: Alanine Aminotransferase 22 IU/L (<35); Albumin 4.1 g/dL (3.5-5.0); Albumin Globulin Ratio 1.4 (1.0-2.8); Alkaline Phosphatase 53 U/L (38-126); Aspartate Aminotransferase 35 IU/L (14-36); Bilirubin Total 0.7 mg/dL (0.2-1.3); Blood Urea Nitrogen 16 mg/dL (7-17); Calcium 8.1 mg/dL (8.4-10.2); Carbon Dioxide 30 mmol/L (22-32); Chloride 100 mmol/L (98-107); Cholesterol 159 mg/dL (140-199); Estimated Glomerular Filt Rate > 60 mL/min (>60); Glucose 86 mg/dL (70-100); HDL Cholesterol 55 mg/dL (40-60); HEMOLYSIS < 15 (0-50); LDL Cholesterol Calculated 89 mg/dL (<100); Potassium 3.9 mmol/L (3.4-5.1); Sodium 139 mmol/L (137-145); Total Protein 7.1 g/dL (6.3-8.2); Triglycerides 73 mg/dL (35-150)
[2023-11-29 10:50] LABS: TSH w/ Reflex to FT4 3.67 uIU/mL (0.47-4.68)
== END ==
PROVIDERS: PCP Family Medicine; Referring Provider Family Medicine; Visit Provider Family Medicine
DX: E89.0 Postprocedural hypothyroidism (principal); E83.51 Hypocalcemia; D64.9 Anemia, unspecified; Z13.220 Encounter for screening for lipoid disorders; Z79.899 Other long term (current) drug therapy
CPT/HCPCS: 36415; 80053; 80061; 84443; 85025

== ENCOUNTER → 2024-02-11 10:51 | Outpatient (CLI) | payer OTHER, MEDICAID, SELFPAY ==
[2024-02-11 11:16] LABS: Add Manual Diff / Slide Review NO; Basophils Absolute Auto 100 /uL (0-100); Basophils Percent Auto 1.1 % (0-2); Eosinophils Absolute Auto 100 /uL (0-450); Eosinophils Percent Auto 0.9 % (2-4); Hematocrit 38.2 % (36-46); Hemoglobin 12.5 g/dL (12.0-16.0); Lymphocytes Absolute Auto 1900 /uL (1100-4500); Lymphocytes Percent Auto 28.4 % (25-40); Mean Corpuscular HGB Conc 32.6 % (30-36); Mean Corpuscular Hemoglobin 26.3 PG (26-34); Mean Corpuscular Volume 80.6 fL (80-100); Monocytes Absolute Auto 400 /uL (0-900); Monocytes Percent Auto 6.5 % (3-14); Neutrophils Absolute Auto 4200 /uL (1500-7000); Neutrophils Percent Auto 63.1 % (50-75); Platelet Count 255 X10^3/uL (150-400); Red Blood Cell Count 4.74 X10^6/uL (4.0-5.2); Red Cell Distribution Width 18.8 % (11.6-14.8); White Blood Cell Count 6.6 X10^3/uL (4.5-11.0)
[2024-02-11 11:42] LABS: HEMOLYSIS < 15 (0-50); Iron 37 ug/dL (37-170)
[2024-02-11 11:47] LABS: Alanine Aminotransferase 15 IU/L (<35); Albumin 4.4 g/dL (3.5-5.0); Albumin Globulin Ratio 1.4 (1.0-2.8); Alkaline Phosphatase 56 U/L (38-126); Aspartate Aminotransferase 25 IU/L (14-36); BUN Creatinine Ratio 20.3 (6-22); Bilirubin Total 0.7 mg/dL (0.2-1.3); Blood Urea Nitrogen 13 mg/dL (7-17); Calcium 8.6 mg/dL (8.4-10.2); Carbon Dioxide 31 mmol/L (22-32); Chloride 104 mmol/L (98-107); Estimated Glomerular Filt Rate > 60 mL/min (>60); Globulin 3.2 g/dL (1.7-4.1); Glucose 93 mg/dL (70-100); HEMOLYSIS < 15 (0-50); Potassium 4.5 mmol/L (3.4-5.1); Sodium 139 mmol/L (137-145); Total Protein 7.6 g/dL (6.3-8.2)
[2024-02-11 11:55] LABS: Percent Iron Saturation 10 % (15-50); Total Iron Binding Capacity 384 ug/dL (265-497); Transferrin 307 mg/dL (206-381)
[2024-02-11 12:01] LABS: Free T4, Direct Thyroxine 1.08 ng/dL (0.78-2.19)
[2024-02-11 12:15] LABS: Thyroid Stimulating Hormone 2.68 uIU/mL (0.47-4.68)
[2024-02-11 12:37] LABS: Vitamin B12 677 pg/mL (239-931)
== END ==
PROVIDERS: PCP Family Medicine; Referring Provider Family Medicine; Visit Provider Family Medicine
DX: E03.9 Hypothyroidism, unspecified (principal); D64.9 Anemia, unspecified; E83.51 Hypocalcemia; Z79.899 Other long term (current) drug therapy
CPT/HCPCS: 36415; 80053; 82607; 83540; 83550; 84439; 84443; 85025

== ENCOUNTER → 2024-02-21 09:42 | Outpatient (CLI) | payer OTHER, MEDICAID, SELFPAY | LOC: CAR 09:42 | PROVIDERS: PCP Family Medicine; Referring Provider Family Medicine; Visit Provider Family Medicine | DX: R55 Syncope and collapse (principal) | CPT/HCPCS: 93246 ==

== ENCOUNTER → 2024-03-27 06:53 | Outpatient (CLI) | payer OTHER, MEDICAID, SELFPAY ==
[2024-03-27 08:06] LABS: Alanine Aminotransferase 16 IU/L (<35); Albumin 4.6 g/dL (3.5-5.0); Albumin Globulin Ratio 1.8 (1.0-2.8); Alkaline Phosphatase 49 U/L (38-126); Aspartate Aminotransferase 24 IU/L (14-36); Bilirubin Total 0.7 mg/dL (0.2-1.3); Bilirubin Unconjugated 0.5 mg/dL (0.0-1.1); Globulin 2.5 g/dL (1.7-4.1); HEMOLYSIS < 15 (0-50); Total Protein 7.1 g/dL (6.3-8.2)
== END ==
PROVIDERS: PCP Family Medicine; Referring Provider Family Medicine; Visit Provider Family Medicine
DX: T88.7XXA Unspecified adverse effect of drug or medicament, initial encounter (principal)
CPT/HCPCS: 36415; 80076

== ENCOUNTER → 2024-05-28 15:35 | Outpatient (CLI) | payer OTHER, MEDICAID, SELFPAY | PROVIDERS: PCP Family Medicine; Visit Provider Nurse Practitioner Family | DX: J02.9 Acute pharyngitis, unspecified (principal) | CPT/HCPCS: 87070 ==

== ENCOUNTER → 2024-10-05 11:43 | Outpatient (CLI) | payer OTHER, MEDICAID, SELFPAY ==
--- NOTE | 2024-10-05 11:46 | DI.RAD.S_ITS ---
PROCEDURE: XR CHEST 2V INDICATIONS: Cough TECHNIQUE: 2 views of the chest were acquired. COMPARISON: None. FINDINGS: Surgical changes and devices: None. Lungs and pleura: No dense consolidation or pleural effusions. Mediastinum: Normal heart size Bones and chest wall: Unremarkable IMPRESSION: No acute radiographic abnormality. Dictated by: Osman Delgadillo M.D. on 10/05/2024 at 18:50 Approved by: Osman Delgadillo M.D. on 10/05/2024 at 18:50
== END ==
LOC: RAD 11:45
PROVIDERS: PCP Family Medicine; Referring Provider Nurse Practitioner Family; Visit Provider Nurse Practitioner Family
DX: R05.9 Cough, unspecified (principal)
CPT/HCPCS: 71046

== ENCOUNTER → 2024-12-14 11:22 | Outpatient (CLI) | payer OTHER, SELFPAY ==
[2024-12-14 12:43] LABS: COVID-19 CEPHEID 4-PLEX PCR Negative (Negative); Influenza A - CEPHEID Flu A POSITIVE (NEGATIVE); Influenza B - CEPHEID Flu B NEGATIVE (NEGATIVE); Respiratory Syncytial Virus Negative (Negative)
== END ==
PROVIDERS: PCP Family Medicine; Visit Provider Physician Assistant Surgical
DX: J02.9 Acute pharyngitis, unspecified (principal)
CPT/HCPCS: 87635; 87400 ×2; 87420; 0241U; 87070; 87880

== ENCOUNTER → 2025-01-26 07:57 | Outpatient (CLI) | payer OTHER, SELFPAY ==
[2025-01-26 10:27] LABS: Thyroid Stimulating Hormone 3.05 uIU/mL (0.47-4.68)
== END ==
PROVIDERS: PCP Family Medicine; Referring Provider Family Medicine; Visit Provider Family Medicine
DX: E03.9 Hypothyroidism, unspecified (principal)
CPT/HCPCS: 36415; 84443

== ENCOUNTER → 2025-10-05 07:20 | Outpatient (CLI) | payer OTHER, SELFPAY ==
[2025-10-05 07:40] LABS: Add Manual Diff / Slide Review NO; Hematocrit 38.0 % (36-46); Hemoglobin 12.7 g/dL (12.0-16.0); Lymphocytes Absolute Auto 2000 /uL (1100-4500); Mean Corpuscular HGB Conc 33.5 % (30-36); Mean Corpuscular Hemoglobin 28.9 PG (26-34); Mean Corpuscular Volume 86.3 fL (80-100); Platelet Count 215 X10^3/uL (150-400)
[2025-10-05 07:47] LABS: Hemoglobin A1C% w Est Avg Glu 4.4 % (4.0-6.0)
[2025-10-05 08:16] LABS: Alanine Aminotransferase 14 IU/L (<35); Albumin 4.3 g/dL (3.5-5.0); Albumin Globulin Ratio 1.5 (1.0-2.8); Alkaline Phosphatase 55 U/L (38-126); Blood Urea Nitrogen 14 mg/dL (7-17); Calcium 8.6 mg/dL (8.4-10.2); Carbon Dioxide 25 mmol/L (22-32); Chloride 102 mmol/L (98-107); Cholesterol 186 mg/dL (140-199); Estimated Glomerular Filt Rate > 60 mL/min (>60); Globulin 2.8 g/dL (1.7-4.1); Glucose 93 mg/dL (70-99); HDL Cholesterol 109 mg/dL (40-60); HEMOLYSIS 15 (0-50); Magnesium 1.5 mg/dL (1.6-2.3); Potassium 4.1 mmol/L (3.4-5.1); Sodium 138 mmol/L (137-145); Total Protein 7.1 g/dL (6.3-8.2); Triglycerides 79 mg/dL (35-150)
[2025-10-05 08:27] LABS: Free T4, Direct Thyroxine 0.95 ng/dL (0.78-2.19)
[2025-10-05 08:40] LABS: Thyroid Stimulating Hormone 5.93 uIU/mL (0.47-4.68)
== END ==
PROVIDERS: PCP Family Medicine; Referring Provider Family Medicine; Visit Provider Family Medicine
DX: E83.51 Hypocalcemia (principal); E89.0 Postprocedural hypothyroidism; D64.9 Anemia, unspecified
CPT/HCPCS: 36415; 80053; 80061; 83036; 83735; 84439; 84443; 85025